=== PATIENT | female | born 1970 | race African-American/Black ===

== ENCOUNTER 2024-08-17 19:09 | Inpatient (IN) ==
[2024-08-17 19:36] LABS: Hematocrit (blood only) 44.4 % (37.0-47.0); Hemoglobin 12.4 g/dl (12.0-16.0); Mean Corpuscular Hemoglobin 24.5 pg (25.0-34.0); Mean Corpuscular Hgb Conc 27.9 g/dL (32.0-36.0); Mean Corpuscular Volume 87.7 fL (80.0-100.0); Mean Platelet Volume 10.9 fL (9.4-12.4); Nucleated RBC # (auto) 0.23 K/uL (0.00-0.12); Platelet Count 130 K/uL (130-400); RDW Coefficient of Variation 20.2 % (11.5-14.5); RDW Standard Deviation 62.9 fL (36.4-46.3); Red Blood Count 5.06 M/uL (4.20-5.40); White Blood Count 11.65 K/ul (4.8-10.8)
[2024-08-17] MEDS: SODIUM CHLORIDE 0.9% 1,000 ML IV ONE (19:38)
--- NOTE | 2024-08-17 19:48 | XRay Report ---
EXAM: Radiograph of the Chest 1 View INDICATION: Dysrhythmia. TECHNIQUE: Frontal view of the chest. Image obtained at 7:30 PM COMPARISON: None provided. FINDINGS: Lungs and pleural spaces: Mild pulmonary vascular congestion noted. Subsegmental right upper lobe collapse. No pulmonary edema. No pleural effusion or pneumothorax. Heart: Mild enlargement of the cardiac shadow. Mediastinum: Normal contour. Bones/joints: No fracture, erosion or dislocation. Soft tissues: No abnormality noted. No radiopaque foreign body noted. Tubes, lines and devices: The endotracheal tube terminates 2.4 cm above the karoline. Nasogastric tube terminates in the distal gastric body. Upper abdomen: No abnormality noted. IMPRESSION: 1. Lines and tubes as above. 2. Mild pulmonary vascular congestion and partial right upper lobe collapse. Consider mucous plug. ACT 112: N/A Electronically signed by Elida Goode 08-17-2024 7:47 PM
[2024-08-17 19:52] LABS: Anion Gap 14 (3-11); BUN Creatinine Ratio 6.1 (10-20); Blood Urea Nitrogen 19 mg/dl (6-23); Calcium 7.8 mg/dl (8.6-10.3); Carbon Dioxide 31 mmol/L (21-32); Chloride 102 mmol/L (98-107); Creatinine Clr Calc Pharmacy 20.7 ml/min; Glucose 126 mg/dl (70-99(Fasting)); Potassium 5.5 mmol/L (3.5-5.1); Sodium 147 mmol/L (136-145)
[2024-08-17] MEDS: EPINEPHrine/NSS 4 MG/254 ML BAG IV SCH (19:53)
[2024-08-17 20:06] LABS: Thyroid Stimulating Hormone 45.799 uIu/ml (0.300-4.500)
[2024-08-17 20:08] LABS: Aspartate Aminotransferase 2541 U/L (13-39)
[2024-08-17 20:10] LABS: Alanine Aminotransferase > 2500 U/L (7-52)
[2024-08-17 20:14] LABS: Albumin Globulin Ratio 1.5 (0.9-2); Albumin Level 3.1 gm/dl (3.4-5.0); Alkaline Phosphatase 122 U/L (34-104); Bilirubin,Total 0.3 mg/dl (0.2-1.0); Globulin 2.1 gm/dl (2.5-4.0); Total Protein 5.2 gm/dl (6.0-8.3)
[2024-08-17] MEDS: OPTIRAY 320 100ml IV ONE (20:24)
[2024-08-17 20:33] LABS: Amphetamines+Metham, Urine Neg (Neg); Barbiturates, Urine Neg (Neg); Benzodiazepine, Urine Neg (Neg); Cocaine, Urine Pos (Neg); Fentanyl, Urine Pos (Neg); MDMA (Ecstacy), Urine Neg (Neg); Marijuana, Urine Neg (Neg); Methadone, Urine Neg (Neg); Opiate, Urine Neg (Neg); Phencyclidine, Urine Neg (Neg)
[2024-08-17 20:35] LABS: Appearance Urine Turbid (Clear); Bacteria Urine Automated 4+ (None Seen); Bilirubin Urine Negative (Negative); Blood Urine Trace (Negative); Calcium Oxalate Crystals Urine Present (None Prsent); Color Urine Yellow; Glucose Urine UA Negative (Negative); Ketones Urine Trace (Negative); Leukocyte Esterase Urine Negative (Negative); Nitrite Urine Negative (Negative); Protein Urine 2+ (Negative); Specific Gravity Urine 1.025 (1.000-1.030); Urobilinogen Urine Negative (Negative); pH Urine 5.5 (4.5-7.5)
--- NOTE | 2024-08-17 20:37 | CT Scan Report ---
Exam(s): CT HEAD Without Contrast EXAM: CT Head Without Intravenous Contrast CLINICAL HISTORY: Reason for exam: cardiac arrest. TECHNIQUE: Axial computed tomography images of the head/brain without intravenous contrast. CTDI is 66.92 mGy and DLP is 1100.35 mGy-cm. Automated exposure control was utilized for the study. A dose lowering technique was utilized adhering to the principles of ALARA. COMPARISON: No relevant prior studies available. FINDINGS: Brain: Focal mild hyperdensity in the anterior right frontal lobe (series 2, image 16 represents beam hardening artifact. No evidence of acute intracranial hemorrhage. Diffuse cerebral edema with sulcal, basal cistern, sylvian fissure, and ventricular narrowing. Diffuse diminution in walters-white matter differentiation. Background of white matter hypodensity, which may represent chronic small vessel ischemic change. No midline shift or herniation. Ventricles: Narrowed. No hydrocephalus. Bones/joints: No acute fracture. Soft tissues: Unremarkable. Sinuses: Unremarkable as visualized. Mastoid air cells: No significant mastoid effusion. IMPRESSION: Diffuse cerebral edema with sulcal, basal cistern, sylvian fissure, and ventricular narrowing. Diffuse diminution in walters-white matter differentiation. Appearance is consistent with global hypoxic-ischemic injury. Communications: Call Doctor Other Electronically signed by: Alexey Islas M.D. 08/17/24 20:36 PM
[2024-08-17] MEDS: HYDROCORTISONE SOD SUCCINATE 100 MG/2 ML VIAL IV STA (20:45)
[2024-08-17 20:47] LABS: INR 1.3 (0.9-1.1); Partial Thromboplastin Ratio 2.6; Partial Thromboplastin Time 70 Seconds (21-31); Prothrombin Time 13.4 Seconds (9.0-12.0)
[2024-08-17 20:55] LABS: Anisocytosis Present; Basophils # (auto) 0.04 K/uL (0.00-0.20); Basophils % (auto) 0.3 %; Echinocytes 1+; Immature Granulocytes % (auto) 3.4 %; Lymphocytes # (auto) 2.87 K/uL (1.20-3.40); Lymphocytes % (auto) 24.6 %; Monocytes # (auto) 0.72 K/uL (0.11-0.59); Monocytes % (auto) 6.2 %; Neutrophils # (auto) 7.62 K/uL (1.40-6.50); Neutrophils % (auto) 65.5 %; Ovalocytes 1+
[2024-08-17 20:58] LABS: T4 Free Thyroxine < 0.32 ng/dl (0.61-1.60)
--- NOTE | 2024-08-17 21:04 | CT Scan Report ---
Exam(s): CT CHEST With Contrast IV Amt: 90 ml optiray 320 EXAM: CT Chest With Intravenous Contrast CLINICAL HISTORY: Reason for exam: cardiac arrest, consolidation. TECHNIQUE: Axial computed tomography images of the chest with intravenous contrast. CTDI is 30 mGy and DLP is 913 mGy-cm. Automated exposure control was utilized for the study. A dose lowering technique was utilized adhering to the principles of ALARA. CONTRAST: Patient received 90 ml optiray 320 of IV contrast COMPARISON: No relevant prior studies available. FINDINGS: Lungs: Subsegmental atelectasis in both lower lobes. Right upper lobe atelectasis/partial collapse with volume loss. No obstructing mass or mucous plug identified by CT. Background of paraseptal emphysema. Pleural space: Unremarkable. No pneumothorax or significant pleural effusion. Heart: Unremarkable. No cardiomegaly. No significant pericardial effusion. No significant coronary artery calcifications. Bones/joints: Acute nondisplaced buckle fracture anterior right rib 5 (series 3, image 28). No other fractures. Soft tissues: Unremarkable. Vasculature: Unremarkable. No aortic aneurysm or dissection. Normal caliber main pulmonary artery. Lymph nodes: Unremarkable. No enlarged lymph nodes. Tubes, lines and devices: Endotracheal tube 1.2 cm from the karoline on community resource officer image. Enteric tube extends to the stomach. IMPRESSION: 1. Endotracheal tube 1.2 cm from the karoline on community resource officer image. Enteric tube extends to the stomach. 2. Subsegmental atelectasis in both lower lobes. Right upper lobe atelectasis/partial collapse with volume loss. No obstructing mass or mucous plug identified by CT. 2. Acute nondisplaced buckle fracture anterior right rib 5. Correlate for recent chest compressions. Electronically signed by: Alexey Islas M.D. 08/17/24 21:03 PM
[2024-08-17] MEDS ORDERED: ONDANSETRON INJ 2 MG/ML 2 ML VIAL IV PRN (21:12)
[2024-08-17] MEDS: LEVOTHYROXINE SODIUM 200 MCG in SYRINGE 0 ML IV STA (21:13)
[2024-08-17] MEDS ORDERED: ALBUT/IPRATROP 3MG/0.5MG NEB 3 ML VIAL NEB PRN (21:14)
--- NOTE | 2024-08-17 21:19 | Critical Care Consultation ---
Date of Consultation August 17, 2024 Assessment & Plan (1) Shock: (2) Cardiac arrest: (3) Lactic acidosis: (4) Metabolic acidosis: (5) ARF (acute renal failure): (6) Anoxic brain injury: (7) Abnormal thyroid stimulating hormone (TSH) level: (8) Opiate use: (9) Elevated troponin: (10) Prolonged QT interval: (11) Rib fracture: Plan Reason Critically Ill: 54 YOF presents as Out of Hospital cardiac arrest following being found in back seat of car with unknown downtime- severe metabolic acidosis, lactic acidosis, multiorgan failure and concern for anoxic brain injury. Patient is requiring high doses of multiple vasopressor agents and remains with refractory shock, refractory acidosis and hypothermia. Neuro - Concern for anoxic brain injury, cerebral edema, unresponsive following cardiac arrest, opioid use CAM ICU: NESTOR - Patient presents post ROSC from cardiac arrest following being found in back seat of car without unknown down time. - Unfortunately head CT at this time is interpreted as diffuse diminution of walters-white matter differentiation, which is consistent with global hypoxic- ischemic injury- This being evident this early in patient course is a poor prognosticator for recovery to a meaningful state. - NPI 0 - nonreactive pupils, with conjunctival hemorrhages - Continue with supportive care at this time- maintaining spo2 >95%, Obtain normothermia of 36.0C- at minimal 34 deg C following ROSC, normalize PH as able, - She is with pinpoint pupils, not overbreathing the vent, no gag or cough with suctioning through the ETT, no withdraw to painful stimuli - holding on sedation at this time, she is not dyschronous with the vent or having any shivering at this time as well. - EEG in morning - as need time to warm patient - supportive care with electrolyte normalization as able - With her cerebral edema, there is no shift at this time, ventricles narrowed- likely already hyperosmolar secondary to bicarb pushes Cardiac - Shock, multiorgan failure, ROSC following cardiac arrest, prolonged qtc, elevated HsCTNI, - Patient in profound shock and multiorgan failure at this time following following unknown hypoxic down time - arrest at this time with no information and patient found unresponsive - may have been respiratory failure/hypoxia first and then to cardiac arrest, however unable to know for sure- if this was the case this increases her mortality significantly. - Patient is with refractory shock at this time, requiring 3 pressors at this time- to include- epinephrine, vasopressin, LEVOphed- if continued to fail could consider methylene blue - Received 4 liters of crystalloid at this time - hold further secondary to peripheral edema as well as scleral edema - Current organs effected- brain, liver, renals, heart - has been treated for possible decompensated hypothyroidism as her TSH is 49 with low T4 in setting of severe hypothermia and arrest- see Endo section - continue support with bicarb infusion Qtc prolongation likely secondary to severe acidosis - mag is 4.0- recheck and replete if able, otherwise continue with attempts to reverse acidosis - Arterial line placed to LEFT RADIAL- likely going to be lower than her central pressure secondary to the amount of vasopressors she is on- follow NIBP. Respiratory - Respiratory failure requiring intubation in setting of cardiac arrest - no opacities or effusions noted on imaging as well as negative for pneumothorax or hemothorax following CPR - Continue respiratory support for SPO2 95% or greater and adjust to assist to compensate for metabolic acidosis GI - Elevated LFTS - Likely secondary to shock from downtime - Now with flaca blood from OGT at 12:00- INR and Fibrinogen are pending- likely progressing to irreversible DIC - Calcium is being replaced RENAL/LYTES - ARF, multiple electrolyte abnormalities, lactic acidosis, anion gap metabolic acidosis - Continue with bicarb infusion and respiratory adjustments to combat metabolic acidosis - remains with severe acidosis and a this time would be unable to tolerate dialysis and is to hemodynamically unstable to transfer, as well as likely un- survivable global anoxic brain injury - Continue with supportive care as we currently are- optimized at this time - serum osmo 383, ETOH <10, gap 14 - UTI likely - Zosyn continue support ENDO - abnormal TSH - with her bradycardia, hypothermia and elevated TSH with low T4 in setting of refractory shock- hydrocortisone 100mg and T4 200mg IV given - Will continue with hydrocortisone 100mg IV q8 and if survives the night consider continuing maintenance of IV Synthroid- likely not main offending pathology here HEME - DIC - Labs have rapidly progressed to DIC like picture - Support with Vitamin K ID - Poss UTI - continue Zosyn LINES/IV ACCESS - CVL Left IJ, LT Radial art line, ETT, OGT, Motley Continue use of these lines DVT PROPHYLAXIS - SCDS, hold on chemoprophylaxis at this time secondary to elevated INR and Fibrinogen DISPO: ICU as requiring multipressor support in setting of multiorgan failure. Patient unfortunately has had an unknown time of down before being found by first responders as well as >45 minutes via ambulance to [facility]. She has refractory shock and refractory acidemia. High likelihood of in regards to the severity of the body systems effected. Case has been discussed with my Attending Physician secondary to her complexity and her unfortunate events, full medical support as we are able to provide. I have personally spent 90 minutes of critical care time in the direct management of this patient. This is a life/limb threatening event. This includes time spent evaluating patient, direct bedside care, chart review, placing orders, interpretation of diagnostic studies, discussion with consultants, as well as other required patient management activities. This time is exclusive of all separately billable procedures, and teaching time and separate from and in addition to any other critical care service time. Thank you for allowing us to participate in the care of this patient. Please refer to my attending physician's documentation for any further recommendations. History of Present Illness Reason for Consultation: ROSC following CPR Requesting Physician: Barbie Perez MD Attending Physician: Blu Torres MD History of Present Illness Information is limited in this HPI/Consultation as there is no family, patient is intubated and sedated. Information in this note is obtained from discussion with ER Nurse, ER Physician, and admitting Physician. 54 YOF who was brought in via EMS following emergent intubation as well as CPR in the field. Reportedly the patient was found unresponsive in the back seat of the car following traffic stop [place] [address] for speeding. Reportedly the car was t [facility] from [place]. It is unknown how long the patient was unresponsive in the back of the car, and was reported as approximately 45 min trip to get to [facility]. There was also reports of unknown substances found on the patient. Tox screen was positive for cocaine and Fentanyl. Reportedly Narcan was administered by first responders with not effect. Patient was noted to be severely hypothermic to 27.5 on arrival to [facility], as well as bradycardic, hypotensive and refractory to epinephrine and Levophed initially. Labs were obtained with BMP, CBC, Tox screen, TSH. ICU ws consulted following patient arrival by the EMD physician. Recommended acid base evaluation and lactate, imaging of head and chest without contrast which was already ordered. As labs returned, patient was noted with KARYNA, Positive tox screen as above, severe elevation of her LFTS, TSH 49 and pending T4. With her hypothermia, bradycardia and refractory shock, unknown history requested as well 100mg hydrocortisone and T4 200mcg IV. and continue re-warming. She remained with Poor IV access and escalating doses of vasopressors, emergent Central access was obtained under maximum sterile barriers to left IJ- see separate procedure note. VBG was then obtained as well as lactate, she was with sever acidosis with PH <7.0 and lactate of 17. 3 amps HCO3 administered and patient transferred to the ICU. Patient remains without any spontaneous movements, riding ventilator set rate and with early evidence of anoxic changes on her CT scan of her head. She will be admitted to the ICU to continue with hemodynamic support and re-warming, management of acid base disturbance. Patient unfortunately is likely hading into severe multiorgan failure from unknown down time and has a high likelihood of mortality. Family: There has been no family notified at this time that I am aware of. Have discussed with case management- with [employer] Section Iron[employer]'s License and Insurance card only identifying information found on patient. They have attempted to identify any emergency contacts, however at this time, we are unable to be able to contact persons. CODE: Presumed FULL Patient History Social History Smoking Status: Unknown if ever smoked Review of Systems Review of Systems: unable to obtain secondary to - intubation and sedation as well as high likelihood of anoxic brain injury Physical Exam Physical Exam: PHYSICAL EXAM: Neuro: No pupil reaction, NPI 0, no overbreathing vent, no gag, no cough, does not withdrawal to painful stimuli, scelra red/hemorrhagic with sceleral edema Chest: equal rise and fall of the chest, no accessory muscle use, no heaves or thrills, on ventilator Cardiac: Regular rate and rhythm, telemetry reviewed- bradycardia/junctional, skin cool and dry, cap refill >3 seconds, peripheral pulses +2 no JVD,, trace peripheral edema GI: NABS x 4 quadrants, soft, : motley to gravity draining minimal urine Skin- abrasion to chest, likely secondary to CPR/Blaise apparatus. Results & Data Results & Data Vital Signs (Past 12 Hours) Vital Signs Temp Pulse Resp BP Pulse Ox O2 Del Method 08/17/24 20:54 27.9 C L 40 L 16 85/42 L 100 08/17/24 20:00 82/38 L 08/17/24 19:48 40 L 16 100 08/17/24 19:45 40 L 16 86/37 L 100 08/17/24 19:43 27.9 C L 08/17/24 19:41 76/38 L 08/17/24 19:39 27.5 C L 08/17/24 19:30 44 L 16 70/34 L 100 08/17/24 19:24 49 L 16 103/52 L 100 08/17/24 19:14 100 Mechanical Vent 08/17/24 19:14 36 L 16 103/52 L 100 Mechanical Vent Laboratory Results Abnormal lab results 08/17/24 08/17/24 08/17/24 Range/Units 19:20 19:49 21:35 WBC 11.65 H (4.8-10.8) K/ul MCH 24.5 L (25.0-34.0) pg MCHC 27.9 L (32.0-36.0) g/dL RDW Std Deviation 62.9 H (36.4-46.3) fL RDW Coeff of Jared 20.2 H (11.5-14.5) % Neut # (Auto) 7.62 H (1.40-6.50) K/uL Harper # (Auto) 0.72 H (0.11-0.59) K/uL Immature Gran # (Auto) 0.40 H (0.01-0.20) K/uL Absolute Nucleated RBC 0.23 H (0.00-0.12) K/uL PT 13.4 H (9.0-12.0) Seconds INR 1.3 H (0.9-1.1) APTT 70 H (21-31) Seconds VBG pH < 7.00 L (7.36-7.41) VBG pCO2 54 H (38-50) mmHg Sodium 147 H (136-145) mmol/L Potassium 5.5 H (3.5-5.1) mmol/L Anion Gap 14 H (3-11) Creatinine 3.13 H (0.6-1.2) mg/dl BUN/Creatinine Ratio 6.1 L (10-20) Glucose 126 H (70-99(Fasting)) mg/dl Lactate > 17.0 H* (0.4-2.0) mmol/L Calcium 7.8 L (8.6-10.3) mg/dl Magnesium 4.0 H (1.7-2.4) mg/dl AST 2541 H (13-39) U/L ALT > 2500 H (7-52) U/L Alkaline Phosphatase 122 H (34-104) U/L Troponin I High Sens 207.3 H* (0-14) pg/ml Total Protein 5.2 L (6.0-8.3) gm/dl Albumin 3.1 L (3.4-5.0) gm/dl Globulin 2.1 L (2.5-4.0) gm/dl TSH 45.799 H (0.300-4.500) uIu/ml Free T4 < 0.32 L (0.61-1.60) ng/dl Urine Appearance Turbid A (Clear) Urine Protein 2+ H (Negative) Urine Ketones Trace H (Negative) Urine Blood Trace H (Negative) Urine WBC (Auto) 11-20 H (0-5) /hpf Urine RBC (Auto) 3-5 H (0-2) /hpf U Hyaline Cast (Auto) 11-20 H (0-2) /lpf U Epithel Cells (Auto) 11-20 H (0-2) /hpf Urine Bacteria (Auto) 4+ H (None Seen) Calcium Oxalate Crystal Present A (None Prsent) Urine Fentanyl Screen Pos H (Neg) Ur Cocaine Metabolite Pos H (Neg) Diagnostic Findings Chest X-Ray 08/17/24 19:26 EXAM: Radiograph of the Chest 1 View INDICATION: Dysrhythmia. TECHNIQUE: Frontal view of the chest. Image obtained at 7:30 PM COMPARISON: None provided. FINDINGS: Lungs and pleural spaces: Mild pulmonary vascular congestion noted. Subsegmental right upper lobe collapse. No pulmonary edema. No pleural effusion or pneumothorax. Heart: Mild enlargement of the cardiac shadow. Mediastinum: Normal contour. Bones/joints: No fracture, erosion or dislocation. Soft tissues: No abnormality noted. No radiopaque foreign body noted. Tubes, lines and devices: The endotracheal tube terminates 2.4 cm above the karoline. Nasogastric tube terminates in the distal gastric body. Upper abdomen: No abnormality noted. IMPRESSION: 1. Lines and tubes as above. 2. Mild pulmonary vascular congestion and partial right upper lobe collapse. Consider mucous plug. ACT 112: N/A Electronically signed by Elida Goode 08-17-2024 7:[address] 08/17/24 19:41 CR Exam(s): CT HEAD Without Contrast EXAM: CT Head Without Intravenous Contrast CLINICAL HISTORY: Reason for exam: cardiac arrest. TECHNIQUE: Axial computed tomography images of the head/brain without intravenous contrast. CTDI is 66.92 mGy and DLP is 1100.35 mGy-cm. Automated exposure control was utilized for the study. A dose lowering technique was utilized adhering to the principles of ALARA. COMPARISON: No relevant prior studies available. FINDINGS: Brain: Focal mild hyperdensity in the anterior right frontal lobe (series 2, image 16 represents beam hardening artifact. No evidence of acute intracranial hemorrhage. Diffuse cerebral edema with sulcal, basal cistern, sylvian fissure, and ventricular narrowing. Diffuse diminution in walters-white matter differentiation. Background of white matter hypodensity, which may represent chronic small vessel ischemic change. No midline shift or herniation. Ventricles: Narrowed. No hydrocephalus. Bones/joints: No acute fracture. Soft tissues: Unremarkable. Sinuses: Unremarkable as visualized. Mastoid air cells: No significant mastoid effusion. IMPRESSION: Diffuse cerebral edema with sulcal, basal cistern, sylvian fissure, and ventricular narrowing. Diffuse diminution in walters-white matter differentiation. Appearance is consistent with global hypoxic-ischemic injury. Communications: Call Doctor Other Electronically signed by: Alexey Islas M.D. 08/17/24 20:[address] 08/17/24 20:07 Exam(s): CT CHEST With Contrast IV Amt: 90 ml optiray 320 EXAM: CT Chest With Intravenous Contrast CLINICAL HISTORY: Reason for exam: cardiac arrest, consolidation. TECHNIQUE: Axial computed tomography images of the chest with intravenous contrast. CTDI is 30 mGy and DLP is 913 mGy-cm. Automated exposure control was utilized for the study. A dose lowering technique was utilized adhering to the principles of ALARA. CONTRAST: Patient received 90 ml optiray 320 of IV contrast COMPARISON: No relevant prior studies available. FINDINGS: Lungs: Subsegmental atelectasis in both lower lobes. Right upper lobe atelectasis/partial collapse with volume loss. No obstructing mass or mucous plug identified by CT. Background of paraseptal emphysema. Pleural space: Unremarkable. No pneumothorax or significant pleural effusion. Heart: Unremarkable. No cardiomegaly. No significant pericardial effusion. No significant coronary artery calcifications. Bones/joints: Acute nondisplaced buckle fracture anterior right rib 5 (series 3, image 28). No other fractures. Soft tissues: Unremarkable. Vasculature: Unremarkable. No aortic aneurysm or dissection. Normal caliber main pulmonary artery. Lymph nodes: Unremarkable. No enlarged lymph nodes. Tubes, lines and devices: Endotracheal tube 1.2 cm from the karoline on scalping machine operator image. Enteric tube extends to the stomach. IMPRESSION: 1. Endotracheal tube 1.2 cm from the karoline on scalping machine operator image. Enteric tube extends to the stomach. 2. Subsegmental atelectasis in both lower lobes. Right upper lobe atelectasis/partial collapse with volume loss. No obstructing mass or mucous plug identified by CT. 2. Acute nondisplaced buckle fracture anterior right rib 5. Correlate for recent chest compressions. Electronically signed by: Alexey Islas M.D. 08/17/24 21:03 PM Chest X-Ray 08/17/24 21:00 Exam(s): XR CXR 1 VIEW EXAM: XR Chest, 1 View CLINICAL HISTORY: Reason for exam: central line placement. TECHNIQUE: Frontal view of the chest. COMPARISON: 08/09/24 at 1930 hrs. FINDINGS/IMPRESSION: 1. Interval placement of left IJ CVC with tip in the distal SVC. No pneumothorax. 2. Endotracheal tube 2.1 cm from the karoline. Enteric tube remains in place. 3. Right lung opacities. Compared to prior, mildly improved right upper lobe aeration, with mildly worsened opacities in the right lower lung. 3. Mild left basilar opacities, appearing mildly increased. 4. Intraosseous line in the right proximal humerus. 5. No significant pleural effusion. Stable heart size. Stable skeleton. Electronically signed by: Alexey Islas M.D. 08/17/24 21:50 PM KUB X-Ray 08/17/24 21:10 Exam(s): XR KUB EXAM: XR Abdomen, 1 View CLINICAL HISTORY: Reason for exam: check position of NG tube. TECHNIQUE: Frontal supine view of the abdomen/pelvis. COMPARISON: No relevant prior studies available. FINDINGS/IMPRESSION: 1. Enteric tube with tip and side port in the stomach. Electronically signed by: Alexey Islas M.D. 08/17/24 21:51 PM Medications Administered Epinephrine HCl () 4 mg in 254 mls @ 6.477 mls/hr IV .Q24H REMEDIOS; Protocol Stop: 09/16/24 19:29 Last Titration: 08/17/24 19:58 Dose: 0.2 mcg/kg/min, 64.8 mls/hr Documented By: BRODIE Co-signed By: LEONARDO Admin: 08/17/24 19:53 Dose: 0.15 mcg/kg/min, 48.6 mls/hr Documented By: NRLuad Co-signed By: LEONARDO Discontinued Medications Hydrocortisone Sodium Succinate (Hydrocortisone Sod Succinate 100 Mg/2 Ml Vial) 100 mg IV NOW STA Stop: 08/17/24 20:38 Last Admin: 08/17/24 20:45 Dose: 100 mg Documented By: BRODIE Sodium Chloride (Nss) 1,000 mls @ 999 mls/hr IV .Q1H1M ONE Stop: 08/17/24 20:25 Last Infusion: 08/17/24 20:53 Dose: Infused Documented By: Admin: 08/17/24 19:38 Dose: 999 mls/hr Documented By: BRODIE Levothyroxine Sodium 200 mcg/ (Syringe) 10 mls @ 2 mls/min IV NOW STA; Protocol Stop: 08/17/24 20:42 Last Admin: 08/17/24 21:13 Dose: 2 mls/min Documented By: LEONARDO Ioversol (Optiray 320 100ml) 90 ml IV ONCE ONE Stop: 08/17/24 20:25 Last Admin: 08/17/24 20:24 Dose: 90 ml Documented By: RADHA Sodium Bicarbonate (Sodium Bicarb 8.4% Inj 50 Meq/50 Ml Syr) 50 meq IV Q5M REMEDIOS Stop: 08/17/24 22:04 Last Admin: 08/17/24 22:06 Dose: 50 meq Documented By: Admin: 08/17/24 22:00 Dose: 50 meq Documented By: Admin: 08/17/24 21:55 Dose: 50 meq Documented By: IDMadi ECG Additional Comments: Marked sinus bradycardia Septal infarct(cited on or [id number]) ST &T wave abnormality, consider anterior ischemia Prolonged QT Abnormal ECG When compared with ECG [id number] 19:56,(unconfirmed) Sinus rhythmhas replacedJunctional rhythm T wave inversion no longer evident inInferior leads T wave inversion no longer evident inLateral leads Coding Level of Care Code 62421 CRITICAL CARE 1ST 30-74M Additional Critical Care Time Additional 30min Critical Care Time: Yes - 38083 x 2 (60 addl min) Total Critical Care Time: 90 Diagnoses Shock R57.9 Cardiac arrest I46.9 Lactic acidosis E87.20 Metabolic acidosis E87.20 ARF (acute renal failure) N17.9 Anoxic brain injury G93.1 Abnormal thyroid stimulating hormone (TSH) level R79.89 Opiate use F11.90 Elevated troponin R79.89 Prolonged QT interval R94.31 Rib fracture S22.39XA Additional Codes Critical Care Time - Additional 30min Critical Care Time: Yes - 98618 x 2 (60 addl min) ([id number])
--- NOTE | 2024-08-17 21:19 | Procedure Note ---
Procedure Note Date of Service August 17, 2024 INTERNAL JUGULAR CENTRAL LINE PROCEDURE NOTE: Procedure: Internal Jugular Central Line Placement Proceduralist: Diego MOROCHO ([facility]) Attending: Dr. Cavazos Indication: Central Drug Administration, Poor Venous Access, Multiple Lab Draws Necessary, etc. Anesthesia: [x]Lidocaine 1% Emergent Consent was implied as patient is intubated sedated, unresponsive post cardiac arrest with ROSC requiring increasig doses of vasopressor/inotropic medications. There is no family immediately available A time-out was completed verifying correct patient, procedure, site, positioning, Patients LEFT Neck was cleansed and draped in the typical sterile fashion using Chloraprep. The Internal Jugular Vein and Carotid Artery were identified using ultrasound. The superficial tissue was anesthetized using 5 mL of 1% lidocaine without epinephrine under direct visualization with the ultrasound. After adequate anesthetization was achieved, the Internal Jugular vein was cannulated under direct ultrasound guidance using an introducer needle on a syringe. Good venous blood return was maintained prior to removal of syringe from introducer needle. Using Seldinger Technique, a guide wire was advanced through the introducer needle without resistance. The introducer needle was removed and ultrasound images were obtained of the guide wire within the Internal Jugular Vein. A small incision was made in penetrating fashion at the guide wire insertion site utilizing an 11 blade scalpel. The dilator was advanced to the vessel without resistance. The dilator was exchanged for the triple lumen catheter which was advanced into the vessel without resistance. The guide wire was removed intact from the catheter without issue. Claves were placed on each catheter tip with confirmation of good blood flow from each lumen. Each port was easily flushed with sterile saline. The catheter was placed at 20 cm and sutured in place. BioPatch was applied to the catheter and a sterile Tegaderm dressing was applied over the catheter with careful attention to sterility. Patient tolerated procedure well. No immediate complications were met. Post procedure x-ray was completed, placement was appropriate and no pneumothorax was noted. Images obtained are NOT saved for permanent record as this was emergent Artery AND Vein visualized: YES Compressible Vein: YES Guidewire or Short Catheter seen in vein prior to dilation: YES Line confirmed in Vein with CXR: YES [facility] Procedure Codes (Charges) Tubes, Drains, and Vasc Access Procedure 1: Tubes, Drains, and Vasc Access: [id number] Insertion Of Non-tunneled Catheter Age 3 Yrs> Coding CPT Codes Tubes, Drains, and Vasc Access - Tubes, Drains, and Vasc Access: [id number] Insertion Of Non-tunneled Catheter Age 3 Yrs> ([id number]) Additional Codes Date of Service ([facility].SURGERY)
--- NOTE | 2024-08-17 21:19 | Procedure Note ---
Procedure Note Date of Service August 17, 2024 ARTERIAL LINE PROCEDURE NOTE: Procedure: Arterial Line Placement Proceduralist: Diego [facility]OCHO ([facility] Attending: Dr. Cavazos Indication: Monitoring on Pressors Anesthesia: [x]None Emergent consent has been implied as patient was brought post arrest with ROSC, and requiring escalating doses of multiple vasopressors and will require frequent lab draws and real time monitoring. A time-out was completed verifying correct patient, procedure, site, positioning. Allens test was performed to ensure adequate perfusion. Patients LEFT wrist was prepped and draped in the usual sterile fashion. Ultrasound guidance was used to aid needle placement. A 20g Arrow arterial line was introduced into the LEFT RADIAL artery x1 attempt, brisk flash of blood was noted, the wire was advanced without resistance and the catheter was threaded without resistance. The needle was removed with appropriate blood return and pressure tubing was attached noting a good arterial waveform. The patient tolerated the procedure well with no immediate complications noted. The line was secured in place with suture and sterile dressing was applied. Blood Loss: Minimal Complications: None immediate Artery Identified: YES Line confirmed in Artery with ultrasound: YES Complications: NONE immediate [facility] Procedure Codes (Charges) Tubes, Drains, and Vasc Access Procedure 1: Tubes, Drains, and Vasc Access: [id number] Arterial Cath/Cannulation Sampling/Monitoring/Transfusion Coding CPT Codes Tubes, Drains, and Vasc Access - Tubes, Drains, and Vasc Access: [id number] Arterial Cath/Cannulation Sampling/Monitoring/Transfusion ([id number]) Additional Codes Date of Service ([facility].SURGERY)
--- NOTE | 2024-08-17 21:27 | History & Physical Report ---
Date of Service August 17, 2024 Assessment & Plan (1) Sepsis with acute liver failure and septic shock: (2) Overdose of fentanyl: (3) Cardiac arrest: (4) Cocaine abuse: (5) Anoxic brain injury: (6) ARF (acute renal failure): (7) Admitted to intensive care unit: Plan The patient is a 54-year-old female with unknown past medical history, who presents to the emergency department in an unresponsive state status post intubation in the field.The patient was brought to the emergency department by police officers, after being found unresponsive in the backseat of a vehicle during a routine traffic stop. The ambulette driver the vehicle stated that the patient had been asleep since they had left [place] earlier in the day. When police officers were unable to wake the patient up, and they noted she was pulseless, they began CPR, and called EMS. The patient reportedly was a sys tolic initially, and after IV epinephrine has shockable rhythm and V-fib. Cardiac resuscitation was initiated approximately 45 minutes prior to arrival in the emergency department. She had been receiving push dose epinephrine due to low blood pressure and faint pulses in the interim. When patient arrived to the emergency department, she was intubated, and history was primarily obtained as noted. There were no family or friends available with the patient in the emergency department. At the time of the mind and a hospitalist service assessment, the patient was intubated, and unresponsive. In the emergency department, patient received treatment including the following: Epinephrine infusion, normal saline 3 L boluses, hydrocortisone 100 mg IV, levothyroxine 200 mg IV. Significant abnormal laboratories: AST 2541, ALT greater than 2500, TSH 45.797, magnesium 4.0, potassium 5.5, creatinine 3.13. CT scan of head showed diffuse cerebral edema with sulcal, basal cistern, sylvian fissure, and ventricular narrowing. Diffuse diminution in walters-white matter differentiation. Appearance consistent with global hypoxic-ischemic injury. Patient was referred to [facility] service for admission to the ICU for ongoing care. #Sepsis/acute liver failure/acute kidney failure/anoxic brain injury/septic shock- Patient admitted to intensive care unit on ventilator, with consult to net solutions architect team for further management Continue epinephrine drip IV fluid resuscitation further management per ICU CT with extensive changes suggestive of significant anoxic brain injury Will be ordering MRI brain and EEG per protocol in the a.m. with neurology consult Acute liver failure/DIC/coagulopathy AST 2541, ALT greater than 2500. Follow laboratory serially Initial INR 1.3, with follow-up greater than 10.0 pH 6.95, pCO2 49, pO2 79, O2 sat 94% Lactate greater than 17.0 Acute kidney failure- Initial creatinine 3.13, follow-up 2.89 NSTEMI s/p cardiac arrest- Initial troponin 207.3 with serial follow-ups Order complete echocardiogram Positive urine drug screen- Cocaine positive with confirmation test pending Fentanyl positive with confirmation test pending Urinary tract infection- Zosyn 4.5 g IV every 8 hours Pulmonary- CT chest with multiple lung opacities- Zosyn 4.5 g IV every 8 hours to cover you urine and pulmonary MRSA swab, coverage of positive History of Present Illness Chief Complaint: The patient was brought to the emergency department by police officers, after being found unresponsive in the backseat of a vehicle during a routine traffic stop. The ambulette driver the vehicle stated that the patient had been asleep since they had left [place] earlier in the day. When police officers were unable to wake the patient up, and they noted she was pulseless, they began CPR, and called EMS. The patient reportedly was a systolic initially, and after IV epinephrine has shockable rhythm and V-fib. Cardiac resuscitation was initiated approximately 45 minutes prior to arrival in the emergency department. She had been receiving push dose epinephrine due to low blood pressure and faint pulses in the interim. When patient arrived to the emergency department, she was intubated, and history was primarily obtained as noted. There were no family or friends available with the patient in the emergency department. At the time of the mind and a hospitalist service assessment, the patient was intubated, and unresponsive. Primary Care Provider: NO PCP The patient is a 54-year-old female with unknown past medical history, who presents to the emergency department in an unresponsive state status post intubation in the field.The patient was brought to the emergency department by police officers, after being found unresponsive in the backseat of a vehicle during a routine traffic stop. The ambulette driver the vehicle stated that the patient had been asleep since they had left [place] earlier in the day. When police officers were unable to wake the patient up, and they noted she was pulseless, they began CPR, and called EMS. The patient reportedly was a systolic initially, and after IV epinephrine has shockable rhythm and V-fib. Cardiac resuscitation was initiated approximately 45 minutes prior to arrival in the emergency department. She had been receiving push dose epinephrine due to low blood pressure and faint pulses in the interim. When patient arrived to the emergency department, she was intubated, and history was primarily obtained as noted. There were no family or friends available with the patient in the emergency department. At the time of the mind and a hospitalist service asses sment, the patient was intubated, and unresponsive. In the emergency department, patient received treatment including the following: Epinephrine infusion, normal saline 3 L boluses, hydrocortisone 100 mg IV, levothyroxine 200 mg IV. Significant abnormal laboratories: AST 2541, ALT greater than 2500, TSH 45.797, magnesium 4.0, potassium 5.5, creatinine 3.13. CT scan of head showed diffuse cerebral edema with sulcal, basal cistern, sylvian fissure, and ventricular narrowing. Diffuse diminution in walters-white matter differentiation. Appearance consistent with global hypoxic-ischemic injury. Patient was referred to [facility] for admission to the ICU for ongoing care. Past Med/Surg History Problem List (Updated 08/18/24 @ 03:15 by Blu Torres MD) Sepsis with acute liver failure and septic shock Admitted to intensive care unit Overdose of fentanyl (Acute) Cocaine abuse (Acute) Rib fracture Prolonged QT interval Elevated troponin Opiate use Abnormal thyroid stimulating hormone (TSH) level Anoxic brain injury (Acute) ARF (acute renal failure) Metabolic acidosis Lactic acidosis Cardiac arrest (Acute) Shock Social History Smoking Status: Unknown if ever smoked Review of Systems Review of Systems: Patient unable to contribute to HPI or review of systems as noted. Information primarily gathered through reports of EMS and police. Physical Exam Physical Exam: The patient is intubated, unresponsive, on ventilator. HEENT--PERRL, EOMI, mucous membranes and oropharynx dry. Neck--supple. No JVD. No bruits. Thyroid normal, trachea midline, no adenopathy. Heart--normal S1 and S2. No murmurs, rubs or gallops. Lungs--clear bilaterally Abdomen--normal bowel sounds and soft. Nontender. Nondistended. Mildly tympanitic Extremities--no cyanosis or clubbing. No edema. Dermatologic--normal skin turgor, normal color, no abnormal lymph nodes, no rash. Neurologic-- limited exam Rheumatologic-limited exam. Psychiatric--unresponsive Results & Data Results & Data Vital Signs (Past 12 Hours) Vital Signs Temp Pulse Resp BP Pulse Ox O2 Del Method 08/17/24 20:54 27.9 C L 40 L 16 85/42 L 100 08/17/24 20:00 82/38 L 08/17/24 19:48 40 L 16 100 08/17/24 19:45 40 L 16 86/37 L 100 08/17/24 19:43 27.9 C L 08/17/24 19:41 76/38 L 08/17/24 19:39 27.5 C L 08/17/24 19:30 44 L 16 70/34 L 100 08/17/24 19:24 49 L 16 103/52 L 100 08/17/24 19:14 100 Mechanical Vent 08/17/24 19:14 36 L 16 103/52 L 100 Mechanical Vent Laboratory Results Laboratory Results WBC 11.65 K/ul (4.8-10.8) H 08/17/24 19:20 RBC 5.06 M/uL (4.20-5.40) 08/17/24 19:20 Hgb 12.4 g/dl (12.0-16.0) 08/17/24 19:20 POC Hgb 8.8 g/dl (12.0-16.0) L 08/18/24 00:25 Hct 44.4 % (37.0-47.0) 08/17/24 19:20 POC Hct 26 % (37-47) L 08/18/24 00:25 MCV 87.7 fL (80.0-100.0) 08/17/24 19:20 MCH 24.5 pg (25.0-34.0) L 08/17/24 19:20 MCHC 27.9 g/dL (32.0-36.0) L 08/17/24 19:20 RDW Std Deviation 62.9 fL (36.4-46.3) H 08/17/24 19:20 RDW Coeff of Jared 20.2 % (11.5-14.5) H 08/17/24 19:20 Plt Count 130 K/uL (130-400) 08/17/24 19:20 MPV 10.9 fL (9.4-12.4) 08/17/24 19:20 Immature Gran % (Auto) 3.4 % 08/17/24 19:20 Neut % (Auto) 65.5 % 08/17/24 19:20 Lymph % (Auto) 24.6 % 08/17/24 19:20 [place] % (Auto) 6.2 % 08/17/24 19:20 Eos % (Auto) 0.0 % 08/17/24 19:20 Baso % (Auto) 0.3 % 08/17/24 19:20 Neut # (Auto) 7.62 K/uL (1.40-6.50) H 08/17/24 19:20 Lymph # (Auto) 2.87 K/uL (1.20-3.40) 08/17/24 19:20 [place] # (Auto) 0.72 K/uL (0.11-0.59) H 08/17/24 19:20 Eos # (Auto) 0.00 K/uL (0.00-0.50) 08/17/24 19:20 Baso # (Auto) 0.04 K/uL (0.00-0.20) 08/17/24 19:20 Immature Gran # (Auto) 0.40 K/uL (0.01-0.20) H 08/17/24 19:20 Absolute Nucleated RBC 0.23 K/uL (0.00-0.12) H 08/17/24 19:20 Nucleated RBC % (auto) 2.0 % 08/17/24 19:20 Anisocytosis Present 08/17/24 19:20 Ovalocytes 1+ 08/17/24 19:20 Echinocytes 1+ 08/17/24 19:20 PT > 90.0 Seconds (9.0-12.0) H 08/17/24 23:11 INR > 10.0 (0.9-1.1) H* 08/17/24 23:11 APTT 70 Seconds (21-31) H 08/17/24 19:20 PTT Ratio 2.6 08/17/24 19:20 Fibrinogen > 860 mg/dl (184-400) H 08/17/24 23:11 Specimen Type Arterial 08/18/24 00:25 Sample Site Art Line 08/18/24 00:25 POC pH 7.02 (7.35-7.45) L* 08/18/24 00:25 POC pCO2 49 mmHg (35-46) H 08/18/24 00:25 POC pO2 78 mmHg (80-95) L 08/18/24 00: POC HCO3 13 daniel/L (19-24) L 08/18/24 00:25 POC Total CO2 14 mmol/L (24-31) L 08/18/24 00: POC Base Excess -18.0 daniel/L (-9-1.8) L 08/18/24 00:25 O2 Sat Pulse Oximetry 93 08/18/24 00: ABG pH (Temp Correct) 7.120 (7.35-7.45) L* 08/18/24 00: ABG pCO2 (Temp Corrct 35 mmHg (35-46) 08/18/24 00: POC ABG pO2 at Pt Temp 46 08/18/24 00: POC ABG O2 Sat 87.0 % (90-95) L 08/18/24 00: Bijan Test Pass 08/18/24 00: VBG pH < 7.00 (7.36-7.41) L 08/17/24 21:35 VBG pCO2 54 mmHg (38-50) H 08/17/24 21:35 VBG pO2 74 mmHg 08/17/24 21:35 VBG HCO3 TNP 08/17/24 21:35 VBG O2 Saturation 89.6 % 08/17/24 21:35 VBG Base Excess TNP 08/17/24 21:35 O2 Delivery Device Ventilator 08/18/24 00:25 Vent Mode AC 08/18/24 00: POC FiO2 90 % 08/18/24 00: End Tidal CO2 18 08/18/24 00:25 POC Sodium 146 mmol/L (135-144) H 08/18/24 00:25 Sodium 162 mmol/L (136-145) H* D 08/17/24 23:10 POC Potassium 4.6 mmol/L (3.3-5.0) 08/18/24 00:25 Potassium 4.7 mmol/L (3.5-5.1) 08/17/24 23:10 Chloride 104 mmol/L (98-107) 08/17/24 23:10 Carbon Dioxide > 45 mmol/L (21-32) H* 08/17/24 23:10 Anion Gap TNP 08/17/24 23:10 BUN 20 mg/dl (6-23) 08/17/24 23:10 Creatinine 2.89 mg/dl (0.6-1.2) H 08/17/24 23:10 Est Cr Clr Drug Dosing 21.6 ml/min 08/17/24 23:10 eGFR 18.50 08/17/24 23:10 BUN/Creatinine Ratio 6.9 (10-20) L 08/17/24 23:10 Glucose 115 mg/dl (70-99(Fasting)) H 08/17/24 23:10 Osmolality 363 mOsm/kg (280-300) H* 08/17/24 19:20 Lactate > 17.0 mmol/L (0.4-2.0) H* 08/18/24 00:53 Calcium 5.5 mg/dl (8.6-10.3) L* D 08/17/24 23:10 Magnesium 3.1 mg/dl (1.7-2.4) H 08/17/24 23:10 Total Bilirubin 0.3 mg/dl (0.2-1.0) 08/17/24 19:20 AST 2541 U/L (13-39) H 08/17/24 19:20 ALT > 2500 U/L (7-52) H 08/17/24 19:20 Alkaline Phosphatase 122 U/L (34-104) H 08/17/24 19:20 Troponin I High Sens 207.3 pg/ml (0-14) H* 08/17/24 19:20 Total Protein 5.2 gm/dl (6.0-8.3) L 08/17/24 19:20 Albumin 3.1 gm/dl (3.4-5.0) L 08/17/24 19:20 Globulin 2.1 gm/dl (2.5-4.0) L 08/17/24 19:20 Albumin/Globulin Ratio 1.5 (0.9-2) 08/17/24 19:20 TSH 45.799 uIu/ml (0.300-4.500) H 08/17/24 19:20 Free T4 < 0.32 ng/dl (0.61-1.60) L 08/17/24 19:20 Urine Color Yellow 08/17/24 19:49 Urine Appearance Turbid (Clear) A 08/17/24 19:49 Urine pH 5.5 (4.5-7.5) 08/17/24 19:49 Ur Specific [place] 1.025 (1.000-1.030) 08/17/24 19:49 Urine Protein 2+ (Negative) H 08/17/24 19:49 Urine Glucose (UA) Negative (Negative) 08/17/24 19:49 Urine Ketones Trace (Negative) H 08/17/24 19:49 Urine Blood Trace (Negative) H 08/17/24 19:49 Urine Nitrite Negative (Negative) 08/17/24 19:49 Urine Bilirubin Negative (Negative) 08/17/24 19:49 Urine Urobilinogen Negative (Negative) 08/17/24 19:49 Ur Leukocyte Esterase Negative (Negative) 08/17/24 19:49 Urine WBC (Auto) 11-20 /hpf (0-5) H 08/17/24 19:49 Urine RBC (Auto) 3-5 /hpf (0-2) H 08/17/24 19:49 U Hyaline Cast (Auto) 11-20 /lpf (0-2) H 08/17/24 19:49 U Epithel Cells (Auto) 11-20 /hpf (0-2) H 08/17/24 19:49 Urine Bacteria (Auto) 4+ (None Seen) H 08/17/24 19:49 Calcium Oxalate Crystal Present (None Prsent) A 08/17/24 19:49 Urine Osmolality 685 mOsm/kg (500-800) 08/17/24 19:20 Salicylates < 3.0 mg/dl (3.0-30) L 08/17/24 23:10 Urine Opiates Screen Neg (Neg) 08/17/24 19:49 Ur Methadone, Qual Neg (Neg) 08/17/24 19:49 Urine Fentanyl Screen Pos (Neg) H 08/17/24 19:49 Acetaminophen < 3 ug/ml (10-30) L 08/17/24 23:10 Urine Barbiturates Neg (Neg) 08/17/24 19:49 Ur Phencyclidine (PCP) Neg (Neg) 08/17/24 19:49 U Amphetamin/Meth Scrn Neg (Neg) 08/17/24 19:49 MDMA (Ecstasy) Screen Neg (Neg) 08/17/24 19:49 U Benzodiazepines Scrn Neg (Neg) 08/17/24 19:49 Ur Cocaine Metabolite Pos (Neg) H 08/17/24 19:49 U Marijuana (THC) Screen Neg (Neg) 08/17/24 19:49 Ethyl Alcohol mg/dL < 10.0 mg/dl (<10.0) 08/17/24 23:[address] 08/17/24 19:41 CR Exam(s): CT HEAD Without Contrast EXAM: CT Head Without Intravenous Contrast CLINICAL HISTORY: Reason for exam: cardiac arrest. TECHNIQUE: Axial computed tomography images of the head/brain without intravenous contrast. CTDI is 66.92 mGy and DLP is 1100.35 mGy-cm. Automated exposure control was utilized for the study. A dose lowering technique was utilized adhering to the principles of ALARA. COMPARISON: No relevant prior studies available. FINDINGS: Brain: Focal mild hyperdensity in the anterior right frontal lobe (series 2, image 16 represents beam hardening artifact. No evidence of acute intracranial hemorrhage. Diffuse cerebral edema with sulcal, basal cistern, sylvian fissure, and ventricular narrowing. Diffuse diminution in walters-white matter differentiation. Background of white matter hypodensity, which may represent chronic small vessel ischemic change. No midline shift or herniation. Ventricles: Narrowed. No hydrocephalus. Bones/joints: No acute fracture. Soft tissues: Unremarkable. Sinuses: Unremarkable as visualized. Mastoid air cells: No significant mastoid effusion. IMPRESSION: Diffuse cerebral edema with sulcal, basal cistern, sylvian fissure, and ventricular narrowing. Diffuse diminution in walters-white matter differentiation. Appearance is consistent with global hypoxic-ischemic injury. Communications: Call Doctor Other Electronically signed by: Alexey Islas M.D. 08/17/24 20:[address] 08/17/24 20:07 Exam(s): CT CHEST With Contrast IV Amt: 90 ml optiray 320 EXAM: CT Chest With Intravenous Contrast CLINICAL HISTORY: Reason for exam: cardiac arrest, consolidation. TECHNIQUE: Axial computed tomography images of the chest with intravenous contrast. CTDI is 30 mGy and DLP is 913 mGy-cm. Automated exposure control was utilized for the study. A dose lowering technique was utilized adhering to the principles of ALARA. CONTRAST: Patient received 90 ml optiray 320 of IV contrast COMPARISON: No relevant prior studies available. FINDINGS: Lungs: Subsegmental atelectasis in both lower lobes. Right upper lobe atelectasis/partial collapse with volume loss. No obstructing mass or mucous plug identified by CT. Background of paraseptal emphysema. Pleural space: Unremarkable. No pneumothorax or significant pleural effusion. Heart: Unremarkable. No cardiomegaly. No significant pericardial effusion. No significant coronary artery calcifications. Bones/joints: Acute nondisplaced buckle fracture anterior right rib 5 (series 3, image 28). No other fractures. Soft tissues: Unremarkable. Vasculature: Unremarkable. No aortic aneurysm or dissection. Normal caliber main pulmonary artery. Lymph nodes: Unremarkable. No enlarged lymph nodes. Tubes, lines and devices: Endotracheal tube 1.2 cm from the karoline on auditor image. Enteric tube extends to the stomach. IMPRESSION: 1. Endotracheal tube 1.2 cm from the karoline on auditor image. Enteric tube extends to the stomach. 2. Subsegmental atelectasis in both lower lobes. Right upper lobe atelectasis/partial collapse with volume loss. No obstructing mass or mucous plug identified by CT. 2. Acute nondisplaced buckle fracture anterior right rib 5. Correlate for recent chest compressions. Electronically signed by: Alexey Islas M.D. 08/17/24 21:03 PM Chest X-Ray 08/17/24 21:00 Exam(s): XR CXR 1 VIEW EXAM: XR Chest, 1 View CLINICAL HISTORY: Reason for exam: central line placement. TECHNIQUE: Frontal view of the chest. COMPARISON: 08/09/24 at 1930 hrs. FINDINGS/IMPRESSION: 1. Interval placement of left IJ CVC with tip in the distal SVC. No pneumothorax. 2. Endotracheal tube 2.1 cm from the karoline. Enteric tube remains in place. 3. Right lung opacities. Compared to prior, mildly improved right upper lobe aeration, with mildly worsened opacities in the right lower lung. 3. Mild left basilar opacities, appearing mildly increased. 4. Intraosseous line in the right proximal humerus. 5. No significant pleural effusion. Stable heart size. Stable skeleton. Electronically signed by: Alexey Islas M.D. 08/17/24 21:50 PM KUB X-Ray 08/17/24 21:10 Exam(s): XR KUB EXAM: XR Abdomen, 1 View CLINICAL HISTORY: Reason for exam: check position of NG tube. TECHNIQUE: Frontal supine view of the abdomen/pelvis. COMPARISON: No relevant prior studies available. FINDINGS/IMPRESSION: 1. Enteric tube with tip and side port in the stomach. Electronically signed by: Alexey Islas M.D. 08/17/24 21:51 PM Code Status & VTE Plan Code Status Full code VTE Prophylaxis Plan VTE Prophylaxis will be ordered: Yes PG Care Time/CCT Total # of Minutes Spent Total Time Spent with Patient: Total time spent is greater than 50% in coordination of care (as documented) at patient's floor/unit and/or counseling patient: Coding Level of Care Code 83525 INT INP/OBS CARE 3/75MIN Diagnoses Sepsis with acute liver failure and septic shock A41.9; R65.21; K72.01 Overdose of fentanyl T40.411A Cardiac arrest I46.9 Cocaine abuse F14.10 Anoxic brain injury G93.1 ARF (acute renal failure) N17.9 Admitted to intensive care unit Z78.9
[2024-08-17 21:28] LABS: Troponin I High Sensitivity 207.3 pg/ml (0-14)
[2024-08-17 21:44] LABS: Oxygen Saturation VBG 89.6 %; PCO2 VBG 54 mmHg (38-50); PO2 VBG 74 mmHg; pH VBG < 7.00 (7.36-7.41)
--- NOTE | 2024-08-17 21:52 | XRay Report ---
Exam(s): XR KUB EXAM: XR Abdomen, 1 View CLINICAL HISTORY: Reason for exam: check position of NG tube. TECHNIQUE: Frontal supine view of the abdomen/pelvis. COMPARISON: No relevant prior studies available. FINDINGS/IMPRESSION: 1. Enteric tube with tip and side port in the stomach. Electronically signed by: Alexey Islas M.D. 08/17/24 21:51 PM
--- NOTE | 2024-08-17 21:52 | XRay Report ---
Exam(s): XR CXR 1 VIEW EXAM: XR Chest, 1 View CLINICAL HISTORY: Reason for exam: central line placement. TECHNIQUE: Frontal view of the chest. COMPARISON: 08/09/24 at 1930 hrs. FINDINGS/IMPRESSION: 1. Interval placement of left IJ CVC with tip in the distal SVC. No pneumothorax. 2. Endotracheal tube 2.1 cm from the karoline. Enteric tube remains in place. 3. Right lung opacities. Compared to prior, mildly improved right upper lobe aeration, with mildly worsened opacities in the right lower lung. 3. Mild left basilar opacities, appearing mildly increased. 4. Intraosseous line in the right proximal humerus. 5. No significant pleural effusion. Stable heart size. Stable skeleton. Electronically signed by: Alexey Islas M.D. 08/17/24 21:50 PM
[2024-08-17] MEDS: SODIUM BICARB 8.4% INJ 50 MEQ/50 ML SYR IV SCH ×2 (21:55→23:31)
[2024-08-17] MEDS ORDERED: AcetylCYSTEINE IV 21 HR REGIMEN (>40KG) IV STA (22:52)
[2024-08-17] MEDS ORDERED: STAT IV/IM STA (22:52)
[2024-08-17] MEDS ORDERED: STAT IV Infusion **Titration per Protocol STA ×2 (22:58→23:34)
[2024-08-17 23:12] LABS: iSTAT Allen Test Pass; iSTAT Art Bld Gas pCO2 Correct 35 mmHg (35-46); iSTAT Art Bld Gas pH Corrected 7.038 (7.35-7.45); iSTAT Arterial Blood Gas HCO3 11 meg/L (19-24); iSTAT Arterial Blood Gas pCO2 49 mmHg (35-46); iSTAT Arterial Blood Gas pH 6.95 (7.35-7.45); iSTAT Arterial Blood Gas pO2 79 mmHg (80-95); iSTAT Arterial Blood Gas pO2 C 46; iSTAT Carbon Dioxide 12 mmol/L (24-31); iSTAT FiO2 40 %; iSTAT Hematocrit 33 % (37-47); iSTAT Hemoglobin 11.2 g/dl (12.0-16.0); iSTAT Potassium 4.7 mmol/L (3.3-5.0); iSTAT Sample Type Arterial; iSTAT Site Art Line; iSTAT Sodium 144 mmol/L (135-144); iSTAT SpO2 94
[2024-08-17] MEDS: NOREPINEPHRINE/D5W 4 MG/250 ML PLCT IV SCH (23:12)
[2024-08-17] MEDS: SODIUM CHLORIDE 0.9% 1,000 ML IV SCH ×2 (23:13→23:42)
[2024-08-17] MEDS: 4.5GM X1 IV STA (23:13)
[2024-08-17] MEDS: PANTOprazole 40 MG/10 ML SYR IV ONE (23:13)
[2024-08-17] MEDS: VASOPRESSIN 20 UNITS in SODIUM CHLORIDE 0.9% 100 ML IV SCH (23:17)
[2024-08-17] MEDS: CALCIUM CHLORIDE 10% 1,000 MG in DEXTROSE 5% 50 ML IV STA (23:31)
[2024-08-17] MEDS: SODIUM BICARBONATE 8.4% 150 MEQ in WATER, STERILE 1,000 ML IV SCH (23:42)
[2024-08-17] MEDS ORDERED: EPINEPHrine/NSS 4 MG/254 ML BAG IV SCH (23:45)
[2024-08-18 00:02] LABS: Acetaminophen < 3 ug/ml (10-30); Salicylate < 3.0 mg/dl (3.0-30)
[2024-08-18 00:35] LABS: BUN Creatinine Ratio 6.9 (10-20); Blood Urea Nitrogen 20 mg/dl (6-23); Calcium 5.5 mg/dl (8.6-10.3); Carbon Dioxide > 45 mmol/L (21-32); Chloride 104 mmol/L (98-107); Creatinine Clr Calc Pharmacy 21.6 ml/min; Glucose 115 mg/dl (70-99(Fasting)); Magnesium 3.1 mg/dl (1.7-2.4); Potassium 4.7 mmol/L (3.5-5.1); Sodium 162 mmol/L (136-145)
[2024-08-18 00:35] LABS: Prothrombin Time > 90.0 Seconds (9.0-12.0)
[2024-08-18 00:38] LABS: INR > 10.0 (0.9-1.1)
--- NOTE | 2024-08-18 00:38 | Emergency Department Note ---
Impression & Plan Cardiac arrest, Anoxic brain injury, Cocaine abuse, Overdose of fentanyl ED Provider Note CHIEF COMPLAINT: Cardiac arrest HISTORY OF PRESENT ILLNESS: This 54-year-old female patient was noted to be in the backseat of a car during a routine traffic stop. She was noted by police officers to be unresponsive. The sales warehouse driver of the vehicle stated the patient had been "asleep" since they left [place]. Please officers were unable to wake up the patient and noted she was pulseless. They began CPR and called EMS. Patient apparently was asystolic initially. After IV epinephrine had a shockable rhythm and a V-fib. Cardiac resuscitation was initiated approximately 45 minutes prior to arrival in the emergency department. She had been receiving push dose epinephrine due to low blood pressure and faint pulses. Patient arrives intubated. There is very little history available, no family or friends are with the patient in the emergency department. She is from out of the area. REVIEW OF SYSTEMS: A review of systems was performed with positives and pertinent negatives listed in the history of present illness. 10 systems were reviewed and are otherwise negative. ALLERGIES: see below MEDICATIONS: see below PMH: see below SOCIAL HISTORY: see below DDx: Cardiac arrest, PE, dysrhythmia, electrolyte abnormality, renal failure, substance abuse, overdose among others. PHYSICAL EXAM: Vital signs reviewed. General: Critically ill-appearing 54-year-old female, intubated HEENT: Atraumatic. Conjunctival injection, pupils are dilated and nonreactive. Cardiovascular: Bradycardic, regular with occasional ectopy. Faint palpable pulses. Pulmonary: Clear to auscultation bilaterally, normal work of breathing. Abdomen: Soft, nontender, nondistended, positive bowel sounds. Musculoskeletal: Post CPR traumatic findings noted to the anterior chest/sternum. Neurologic: Patient unresponsive. Skin: Warm, dry, no rash EMERGENCY DEPARTMENT COURSE/MDM: This patient was evaluated and appeared to be critically ill. 2 peripheral IV lines were obtained. Patient was on a norepinephrine drip at the time my evaluation and had received push dose of epinephrine by EMS. She became bradycardic and lost pulses. CPR was reinitiated. A dose of IV epinephrine administered and IV epinephrine drip was initiated. Chest x-ray was performed and reveals a consolidation in the right mid to upper lung field with ET tube in good position. Patient did receive IV fluid bolus of 1 L. Blood pressure did improve but remained hypotensive. She was noted to be profoundly hypothermic and placed on a Melissa hugger with warmed IV fluids. CT imaging of the head was performed and reveals anoxic brain injury. Laboratory work reveals a hyponatremia, TSH of 45, undetectable free T4, elevated troponin, markedly elevated liver enzymes, UDS significant for cocaine and fentanyl. Consultation with the critical care service was placed. BAILEE Sherman has requested 100 mg of IV hydrocortisone and 200 mcg of levothyroxine IV. Case was discussed with the hospitalist service who will evaluate the patient for admission and further management. MONITORING: An order for cardiac monitoring was placed and the patient is noted to be in a bradycardic rhythm, likely junctional at 38 beats per minute. RADIOLOGY: Chest x-ray to my interpretation reveals ET tube in good position, lung consolidation in the right upper lobe, pulmonary vascular congestion. Head CT to my interpretation reveals no evidence of acute intracranial hemorrhage, diffuse anoxic brain injury. CT of the chest: IMPRESSION: 1. Endotracheal tube 1.2 cm from the karoline on medical coding auditor image. Enteric tube extends to the stomach. 2. Subsegmental atelectasis in both lower lobes. Right upper lobe atelectasis/partial collapse with volume loss. No obstructing mass or mucous plug identified by CT. 2. Acute nondisplaced buckle fracture anterior right rib 5. Correlate for recent chest compressions. EKG: To my interpretation reveals a junctional bradycardia at 39 bpm. PVC noted. QTc of 563. Previous anterior infarct with ST changes in the lateral leads appreciated. DISPOSITION: Admission I have personally spent 60 minutes of critical care time in the direct management of this patient. This was a life/limb threatening event. This 60 minutes is in excess of all separately billable procedures. Past Med/Surg History Problem List (Updated 08/18/24 @ 03:15 by Blu Torres MD) Sepsis with acute liver failure and septic shock Admitted to intensive care unit Overdose of fentanyl (Acute) Cocaine abuse (Acute) Rib fracture Prolonged QT interval Elevated troponin Opiate use Abnormal thyroid stimulating hormone (TSH) level Anoxic brain injury (Acute) ARF (acute renal failure) Metabolic acidosis Lactic acidosis Cardiac arrest (Acute) Shock Social History Smoking Status: Unknown if ever smoked Results & Data (ED) Vital Signs Vital Signs - 24 hr 08/17/24 18:57 08/17/24 19:14 08/17/24 19:14 Temperature Temperature Source Pulse Rate 36 L Pulse Rate from SpO2 Sensor Respiratory Rate 16 16 Blood Pressure 103/52 L Blood Pressure Mean 69 Pulse Oximetry 100 100 Oxygen Delivery Method Mechanical Vent Mechanical Vent Fraction of Inspired Oxygen 50 Sepsis Recent Fever Within 48 Hours No Sepsis New/Unexplained Change in Mental Status No Sepsis Action Taken by Nursing No Action Required End-Tidal CO2 35 08/17/24 19:24 08/17/24 19:30 08/17/24 19:39 Temperature 27.5 C L Temperature Source Knott Cath ( Temp Sensing) Pulse Rate 49 L 44 L Pulse Rate from SpO2 Sensor 42 L Respiratory Rate 16 16 Blood Pressure 103/52 L 70/34 L Blood Pressure Mean 69 46 Pulse Oximetry 100 100 Oxygen Delivery Method Fraction of Inspired Oxygen Sepsis Recent Fever Within 48 Hours Sepsis New/Unexplained Change in Mental Status Sepsis Action Taken by Nursing End-Tidal CO2 49 40 08/17/24 19:41 08/17/24 19:43 08/17/24 19:45 Temperature 27.9 C L Temperature Source Pulse Rate 40 L Pulse Rate from SpO2 Sensor 44 L Respiratory Rate 16 Blood Pressure 76/38 L 86/37 L Blood Pressure Mean 50 53 Pulse Oximetry 100 Oxygen Delivery Method Fraction of Inspired Oxygen Sepsis Recent Fever Within 48 Hours Sepsis New/Unexplained Change in Mental Status Sepsis Action Taken by Nursing End-Tidal CO2 35 08/17/24 19:48 08/17/24 20:00 08/17/24 20:54 Temperature 27.9 C L Temperature Source Pulse Rate 40 L 40 L Pulse Rate from SpO2 Sensor 41 L 40 L Respiratory Rate 16 16 Blood Pressure 82/38 L 85/42 L Blood Pressure Mean 49 56 Pulse Oximetry 100 100 Oxygen Delivery Method Fraction of Inspired Oxygen Sepsis Recent Fever Within 48 Hours Sepsis New/Unexplained Change in Mental Status Sepsis Action Taken by Nursing End-Tidal CO2 34 29 Home Medications Current Medication List: was personally reviewed by me Laboratory Data Attestation: I reviewed the patient's lab results. 08/18/24 10:54 08/18/24 10:54 Lab Results 08/17/24 08/17/24 08/17/24 Range/Units 19:20 19:23 19:49 WBC 11.65 H (4.8-10.8) K/ul RBC 5.06 (4.20-5.40) M/uL Hgb 12.4 (12.0-16.0) g/dl POC Hgb 13.9 (12.0-16.0) g/dl Hct 44.4 (37.0-47.0) % POC Hct 41 (37-47) % MCV 87.7 (80.0-100.0) fL MCH 24.5 L (25.0-34.0) pg MCHC 27.9 L (32.0-36.0) g/dL RDW Std Deviation 62.9 H (36.4-46.3) fL RDW Coeff of Jared 20.2 H (11.5-14.5) % Plt Count 130 (130-400) K/uL MPV 10.9 (9.4-12.4) fL Immature Gran % (Auto) 3.4 % Neut % (Auto) 65.5 % Lymph % (Auto) 24.6 % Mobile % (Auto) 6.2 % Eos % (Auto) 0.0 % Baso % (Auto) 0.3 % Neut # (Auto) 7.62 H (1.40-6.50) K/uL Lymph # (Auto) 2.87 (1.20-3.40) K/uL Mobile # (Auto) 0.72 H (0.11-0.59) K/uL Eos # (Auto) 0.00 (0.00-0.50) K/uL Baso # (Auto) 0.04 (0.00-0.20) K/uL Immature Gran # (Auto) 0.40 H (0.01-0.20) K/uL Absolute Nucleated RBC 0.23 H (0.00-0.12) K/uL Nucleated RBC % (auto) 2.0 % Anisocytosis Present Ovalocytes 1+ Echinocytes 1+ PT 13.4 H (9.0-12.0) Seconds INR 1.3 H (0.9-1.1) APTT 70 H (21-31) Seconds PTT Ratio 2.6 POC Sodium 141 (135-144) mmol/L Sodium 147 H (136-145) mmol/L POC Potassium 5.2 H (3.3-5.0) mmol/L Potassium 5.5 H (3.5-5.1) mmol/L POC Chloride 108 (101-112) mmol/L Chloride 102 (98-107) mmol/L Carbon Dioxide 31 (21-32) mmol/L POC Total CO2 17 L (24-31) mmol/L Anion Gap 14 H (3-11) POC Anion Gap 22.0 (16-25) mmol/L POC BUN 20 H (7-18) mg/dl BUN 19 (6-23) mg/dl Creatinine 3.13 H (0.6-1.2) mg/dl POC Creatinine 3.0 H (0.6-1.3) mg/dl Est Cr Clr Drug Dosing 20.7 ml/min eGFR 16.81 BUN/Creatinine Ratio 6.1 L (10-20) Glucose 126 H (70-99(Fasting)) mg/dl POC Glucose (other) 114 H (70-99) mg/dl Osmolality 363 H* (280-300) mOsm/kg Calcium 7.8 L (8.6-10.3) mg/dl POC Ioniz Calcium Pauline 0.88 L (1.12-1.32) mmol/l Magnesium 4.0 H (1.7-2.4) mg/dl Total Bilirubin 0.3 (0.2-1.0) mg/dl AST 2541 H (13-39) U/L ALT > 2500 H (7-52) U/L Alkaline Phosphatase 122 H (34-104) U/L Troponin I High Sens 207.3 H* (0-14) pg/ml Total Protein 5.2 L (6.0-8.3) gm/dl Albumin 3.1 L (3.4-5.0) gm/dl Globulin 2.1 L (2.5-4.0) gm/dl Albumin/Globulin Ratio 1.5 (0.9-2) TSH 45.799 H (0.300-4.500) uIu/ml Free T4 < 0.32 L (0.61-1.60) ng/dl Urine Color Yellow Urine Appearance Turbid A (Clear) Urine pH 5.5 (4.5-7.5) Ur Specific [place] 1.025 (1.000-1.030) Urine Protein 2+ H (Negative) Urine Glucose (UA) Negative (Negative) Urine Ketones Trace H (Negative) Urine Blood Trace H (Negative) Urine Nitrite Negative (Negative) Urine Bilirubin Negative (Negative) Urine Urobilinogen Negative (Negative) Ur Leukocyte Esterase Negative (Negative) Urine WBC (Auto) 11-20 H (0-5) /hpf Urine RBC (Auto) 3-5 H (0-2) /hpf U Hyaline Cast (Auto) 11-20 H (0-2) /lpf U Epithel Cells (Auto) 11-20 H (0-2) /hpf Urine Bacteria (Auto) 4+ H (None Seen) Calcium Oxalate Crystal Present A (None Prsent) Urine Osmolality 685 (500-800) mOsm/kg Urine Opiates Screen Neg (Neg) Ur Methadone, Qual Neg (Neg) Urine Fentanyl Screen Pos H (Neg) Urine Barbiturates Neg (Neg) Ur Phencyclidine (PCP) Neg (Neg) U Amphetamin/Meth Scrn Neg (Neg) MDMA (Ecstasy) Screen Neg (Neg) U Benzodiazepines Scrn Neg (Neg) Ur Cocaine Metabolite Pos H (Neg) U Marijuana (THC) Screen Neg (Neg) Administered Medications Discontinued Medications Atropine Sulfate (Atropine Sulfate 0.1 Mg/Ml 10ml Syr) Confirm Administered Dose 1 mg IV .STK-MED ONE Stop: 08/18/24 05:14 Last Admin: 08/18/24 06:17 Dose: Not Given Documented By: JOSE Calcium Chloride (Calcium Chloride 10% 10 Ml Syr) Confirm Administered Dose 1,000 mg IV .STK-MED ONE Stop: 08/18/24 04:42 Last Admin: 08/18/24 06:13 Dose: Not Given Documented By: JOSE Hydrocortisone Sodium Succinate (Hydrocortisone Sod Succinate 100 Mg/2 Ml Vial) 100 mg IV NOW STA Stop: 08/17/24 20:38 Last Admin: 08/17/24 20:45 Dose: 100 mg Documented By: BRODIE Sodium Chloride (Nss) 1,000 mls @ 999 mls/hr IV .Q1H1M ONE Stop: 08/17/24 20:25 Last Infusion: 08/17/24 20:53 Dose: Infused Documented By: Admin: 08/17/24 19:38 Dose: 999 mls/hr Documented By: BRODIE Epinephrine HCl () 4 mg in 254 mls @ 6.477 mls/hr IV .Q24H REM[facility]; Protocol Stop: 09/16/24 19:29 Last Titration: 08/18/24 06:25 Dose: Infused Documented By: JOSE Co-signed By: BUBBA Titration: 08/17/24 19:58 Dose: 0.2 mcg/kg/min, 64.8 mls/hr Documented By: BRODIE Co-signed By: LEONARDO Admin: 08/17/24 19:53 Dose: 0.15 mcg/kg/min, 48.6 mls/hr Documented By: NRLuda Co-signed By: LEONARDO Levothyroxine Sodium 200 mcg/ (Syringe) 10 mls @ 2 mls/min IV NOW STA; Protocol Stop: 08/17/24 20:42 Last Admin: 08/17/24 21:13 Dose: 2 mls/min Documented By: IDMadi Pantoprazole Sodium (Protonix) 40 mg in 10 mls @ 5 mls/min IV NOW ONE Stop: 08/17/24 23:01 Last Admin: 08/17/24 23:13 Dose: 5 mls/min Documented By: TMAntonina Pantoprazole Sodium (Protonix) 40 mg in 10 mls @ 5 mls/min IV BID [facility] Stop: 09/17/24 08:59 Last Admin: 08/18/24 09:24 Dose: 5 mls/min Documented By: ZARINA Norepinephrine Bitartrate (Levophed/D5w) 4 mg in 250 mls @ 191.25 mls/hr IV .Q1H19M REMEDIOS; Protocol Stop: 09/16/24 21:14 Last Admin: 08/18/24 09:23 Dose: 0.6 mcg/kg/min, 191.3 mls/hr Documented By: ZARINA Co-signed By: OSCAR Titration: 08/18/24 09:07 Dose: Infused Documented By: ZARINA Co-signed By: OSCAR Admin: 08/18/24 07:48 Dose: 0.6 mcg/kg/min, 191.3 mls/hr Documented By: ZARINA Co-signed By: KASSIE Titration: 08/18/24 07:48 Dose: Infused Documented By: ZARINA Co-signed By: KASSIE Admin: 08/18/24 06:34 Dose: 0.6 mcg/kg/min, 191.3 mls/hr Documented By: JOSE Co-signed By: ACACIA Titration: 08/18/24 06:34 Dose: Infused Documented By: JOSE Co-signed By: ACACIA Admin: 08/18/24 06:16 Dose: 0.6 mcg/kg/min, 191.3 mls/hr Documented By: TMG Co-signed By: CP Titration: 08/18/24 02:28 Dose: Infused Documented By: TMG Co-signed By: CP Titration: 08/18/24 02:25 Dose: 0.6 mcg/kg/min, 191.3 mls/hr Documented By: TMG Co-signed By: JT Titration: 08/18/24 00:32 Dose: 0.4 mcg/kg/min, 127.5 mls/hr Documented By: TMG Co-signed By: JT Admin: 08/18/24 00:31 Dose: 0.35 mcg/kg/min, 111.6 mls/hr Documented By: TMG Co-signed By: JAdrianna Titration: 08/18/24 00:31 Dose: Infused Documented By: TMG Co-signed By: JAdrianna Titration: 08/18/24 00:17 Dose: 0.35 mcg/kg/min, 111.6 mls/hr Documented By: TMG Co-signed By: JAdrianna Admin: 08/17/24 23:12 Dose: 0.32 mcg/kg/min, 102 mls/hr Documented By: TMG Co-signed By: CABRERA Piperacillin Sod/Tazobactam Sod (Zosyn) 4.5 gm in 100 mls @ 25 mls/hr IV Q8H REMEDIOS; Protocol Stop: 08/20/24 03:59 Last Admin: 08/18/24 06:19 Dose: 25 mls/hr Documented By: TMG Sodium Chloride (Nss) 1,000 mls @ 999 mls/hr IV .Q1H1M [facility] Stop: 08/17/24 22:17 Last Infusion: 08/18/24 06:26 Dose: Infused Documented By: Admin: 08/17/24 23:42 Dose: 999 mls/hr Documented By: TMG Piperacillin Sod/Tazobactam Sod (Zosyn) 4.5 gm in 100 mls @ 200 mls/hr IV NOW STA; Protocol Stop: 08/17/24 23:20 Last Infusion: 08/18/24 06:26 Dose: Infused Documented By: Admin: 08/17/24 23:13 Dose: 200 mls/hr Documented By: G Sodium Bicarbonate 150 meq/ (Sterile Water) 1,150 mls @ 150 mls/hr IV .Q7H40M [facility] Stop: 09/16/24 22:51 Last Infusion: 08/18/24 06:26 Dose: Infused Documented By: [facility] [place] Admin: 08/17/24 23:42 Dose: 150 mls/hr Documented By: G Sodium Chloride (Nss) 1,000 mls @ 999 mls/hr IV .Q1H1M [facility] Stop: 08/18/24 00:52 Last Admin: 08/18/24 06:16 Dose: Not Given Documented By: Infusion: 08/18/24 00:17 Dose: Infused Documented By: [facility] [place] Admin: 08/17/24 23:13 Dose: 999 mls/hr Documented By: [facility] [place] Acetylcysteine 4,250 mg/ (Dextrose) 521.25 mls @ 130 mls/hr IV 0030 ONE; Protocol Stop: 08/18/24 04:30 Last Infusion: 08/18/24 06:13 Dose: Infused Documented By: [facility] [place] Admin: 08/18/24 00:32 Dose: 130 mls/hr Documented By: [facility] [place] Acetylcysteine 12,750 mg/ (Dextrose) 263.75 mls @ 260 mls/hr IV 2315 ONE; Protocol Stop: 08/18/24 00:15 Last Infusion: 08/18/24 06:14 Dose: Infused Documented By: [facility] [place] Admin: 08/17/24 23:31 Dose: 260 mls/hr Documented By: [facility] [place] Hydrocortisone Sodium (Succinate 100 mg/ Syringe) 2 mls @ 4 mls/min IV Q8H [facility] Stop: 09/17/24 05:59 Last Admin: 08/18/24 06:18 Dose: 4 mls/min Documented By: [facility] [place] Acetylcysteine 7,860 mg/ (Dextrose) 1,039.3 mls @ 65 mls/hr IV 0430 ONE; Protocol Stop: 08/18/24 20:29 Last Admin: 08/18/24 07:28 Dose: 65 mls/hr Documented By: LAF Vasopressin 20 units/ Sodium (Chloride) 101 mls @ 12.12 mls/hr IV .Q8H20M [facility] Stop: 09/16/24 22:59 Last Admin: 08/18/24 06:16 Dose: 0.04 unit/min, 12.1 mls/hr Documented By: JOSE Co-signed By: KATE Infusion: 08/18/24 06:16 Dose: Infused Documented By: JOSE Co-signed By: AKTE Admin: 08/17/24 23:17 Dose: 0.04 unit/min, 12.1 mls/hr Documented By: JOSE Co-signed By: CABRERA Magnesium Sulfate/Dextrose (Magnesium Sulfate / D5w) 1 gm in 100 mls @ 50 mls/hr IV Q2H [facility] Stop: 08/18/24 02:59 Last Admin: 08/18/24 06:24 Dose: Not Given Documented By: JOSE Calcium Chloride 1,000 mg/ (Dextrose) 60 mls @ 240 mls/hr IV NOW STA Stop: 08/17/24 23:31 Last Infusion: 08/18/24 06:25 Dose: Infused Documented By: Admin: 08/17/24 23:31 Dose: 240 mls/hr Documented By: JOSE Epinephrine HCl () 16 mg in 250 mls @ 1.594 mls/hr IV .Q24H REMEDIOS; Protocol Stop: 09/16/24 23:44 Last Titration: 08/18/24 02:03 Dose: 0.5 mcg/kg/min, 39.8 mls/hr Documented By: JOSE Co-signed By: ACACIA Titration: 08/18/24 01:54 Dose: 0.4 mcg/kg/min, 31.9 mls/hr Documented By: JOSE Co-signed By: ACACIA Titration: 08/18/24 01:40 Dose: 0.3 mcg/kg/min, 23.9 mls/hr Documented By: JOSE Co-signed By: ACACIA Admin: 08/18/24 01:23 Dose: 0.2 mcg/kg/min, 15.9 mls/hr Documented By: JOSE Co-signed By: ACACIA Phytonadione 10 mg/ Dextrose 51 mls @ 102 mls/hr IV ONE ONE Stop: 08/18/24 01:14 Last Infusion: 08/18/24 06:25 Dose: Infused Documented By: Admin: 08/18/24 01:19 Dose: 102 mls/hr Documented By: JOSE Sodium Bicarbonate 150 meq/ (Sterile Water) 1,150 mls @ 200 mls/hr IV .Q5H45M [facility] Stop: 09/17/24 04:59 Last Admin: 08/18/24 07:34 Dose: 200 mls/hr Documented By: Infusion: 08/18/24 07:34 Dose: Infused Documented By: Admin: 08/18/24 06:37 Dose: 200 mls/hr Documented By: JOSE Insulin Human Regular 250 (units/ Sodium Chloride) 250 mls @ 4.1 mls/hr IV .Q24H [facility]; Protocol Stop: 09/17/24 05:14 Last Titration: 08/18/24 09:58 Dose: 4.1 units/hr, 4.1 mls/hr Documented By: ZARINA Co-signed By: URVASHI Admin: 08/18/24 08:27 Dose: 2.9 units/hr, 2.9 mls/hr Documented By: ZARINA Co-signed By: KASSIE Pyridoxine HCl 100 mg/ Syringe 11 mls @ 2.2 mls/min IV DAILY [facility] Stop: 09/17/24 08:59 Last Admin: 08/18/24 09:24 Dose: 2.2 mls/min Documented By: ZARINA Thiamine HCl 100 mg/ Syringe 10 mls @ 2 mls/min IV DAILY [facility] Stop: 09/17/24 08:59 Last Admin: 08/18/24 09:23 Dose: 2 mls/min Documented By: ZARINA Insulin Aspart (Insulin Aspart Per Unit Charge) 0 units SC ACHS [facility] Stop: 09/17/24 07:29 Last Admin: 08/18/24 08:30 Dose: 3 units Documented By: ZARINA Co-signed By: KASSIE Ioversol (Optiray 320 100ml) 90 ml IV ONCE ONE Stop: 08/17/24 20:25 Last Admin: 08/17/24 20:24 Dose: 90 ml Documented By: RADHA Sinclairaneous (Stat Iv Infusion Titration Per Protocol) 1 each N/A NOW STA Stop: 08/17/24 19:27 Last Admin: 08/18/24 07:30 Dose: Not Given Documented By: ZARINA Sinclairaneous (Concentrate Norepinephrine Iv Infusion) 1 each N/A NOW ONE Stop: 08/17/24 19:27 Last Admin: 08/18/24 06:25 Dose: Not Given Documented By: TMG Miscellaneous (Stat Iv Infusion Titration Per Protocol) 1 each N/A NOW STA Stop: 08/17/24 21:13 Last Admin: 08/18/24 07:30 Dose: Not Given Documented By: ZARINA Ricks (Icu Electrolyte Replacement Protocol) 1 each N/A BID@06,18 [facility]IOS; Protocol Stop: 08/25/24 05:59 Last Admin: 08/18/24 07:32 Dose: Not Given Documented By: ZARINA Ricks (Icu Protocol For Hyperglycemia) 1 each N/A Q6 [facility] Stop: 08/20/24 00:00 Last Admin: 08/18/24 07:31 Dose: Not Given Documented By: Admin: 08/18/24 01:53 Dose: Not Given Documented By: JOSE Miscellaneous Information (Patient's Allergy Info Needs Entered) 1 each N/A NOW STA Stop: 08/17/24 21:15 Last Admin: 08/18/24 07:30 Dose: Not Given Documented By: ZARINA Sodium Bicarbonate (Sodium Bicarb 8.4% Inj 50 Meq/50 Ml Syr) 50 meq IV Q5M [facility] Stop: 08/17/24 22:04 Last Admin: 08/17/24 22:06 Dose: 50 meq Documented By: Admin: 08/17/24 22:00 Dose: 50 meq Documented By: Admin: 08/17/24 21:55 Dose: 50 meq Documented By: LEONARDO Sodium Bicarbonate (Sodium Bicarb 8.4% Inj 50 Meq/50 Ml Syr) 50 meq IV Q5M [facility] Stop: 08/17/24 23:18 Last Admin: 08/17/24 23:32 Dose: 50 meq Documented By: Admin: 08/17/24 23:32 Dose: 50 meq Documented By: Admin: 08/17/24 23:31 Dose: 50 meq Documented By: KENNETHG Sodium Bicarbonate (Sodium Bicarb 8.4% Inj 50 Meq/50 Ml Syr) 50 meq IV Q5M [facility] Stop: 08/18/24 05:11 Last Admin: 08/18/24 06:37 Dose: 50 meq Documented By: Admin: 08/18/24 06:36 Dose: 50 meq Documented By: Admin: 08/18/24 06:17 Dose: 50 meq Documented By: JOSE Imaging Data Radiologist's Impression: Chest X-Ray 08/17/24 19:26 EXAM: Radiograph of the Chest 1 View INDICATION: Dysrhythmia. TECHNIQUE: Frontal view of the chest. Image obtained at 7:30 PM COMPARISON: None provided. FINDINGS: Lungs and pleural spaces: Mild pulmonary vascular congestion noted. Subsegmental right upper lobe collapse. No pulmonary edema. No pleural effusion or pneumothorax. Heart: Mild enlargement of the cardiac shadow. Mediastinum: Normal contour. Bones/joints: No fracture, erosion or dislocation. Soft tissues: No abnormality noted. No radiopaque foreign body noted. Tubes, lines and devices: The endotracheal tube terminates 2.4 cm above the karoline. Nasogastric tube terminates in the distal gastric body. Upper abdomen: No abnormality noted. IMPRESSION: 1. Lines and tubes as above. 2. Mild pulmonary vascular congestion and partial right upper lobe collapse. Consider mucous plug. ACT 112: N/A Electronically signed by Elida Goode 08-17-2024 7:[address] 08/17/24 19:41 CR Exam(s): CT HEAD Without Contrast EXAM: CT Head Without Intravenous Contrast CLINICAL HISTORY: Reason for exam: cardiac arrest. TECHNIQUE: Axial computed tomography images of the head/brain without intravenous contrast. CTDI is 66.92 mGy and DLP is 1100.35 mGy-cm. Automated exposure control was utilized for the study. A dose lowering technique was utilized adhering to the principles of ALARA. COMPARISON: No relevant prior studies available. FINDINGS: Brain: Focal mild hyperdensity in the anterior right frontal lobe (series 2, image 16 represents beam hardening artifact. No evidence of acute intracranial hemorrhage. Diffuse cerebral edema with sulcal, basal cistern, sylvian fissure, and ventricular narrowing. Diffuse diminution in walters-white matter differentiation. Background of white matter hypodensity, which may represent chronic small vessel ischemic change. No midline shift or herniation. Ventricles: Narrowed. No hydrocephalus. Bones/joints: No acute fracture. Soft tissues: Unremarkable. Sinuses: Unremarkable as visualized. Mastoid air cells: No significant mastoid effusion. IMPRESSION: Diffuse cerebral edema with sulcal, basal cistern, sylvian fissure, and ventricular narrowing. Diffuse diminution in walters-white matter differentiation. Appearance is consistent with global hypoxic-ischemic injury. Communications: Call Doctor Other Electronically signed by: Alexey Islas M.D. 08/17/24 20:[address] 08/17/24 20:07 Exam(s): CT CHEST With Contrast IV Amt: 90 ml optiray 320 EXAM: CT Chest With Intravenous Contrast CLINICAL HISTORY: Reason for exam: cardiac arrest, consolidation. TECHNIQUE: Axial computed tomography images of the chest with intravenous contrast. CTDI is 30 mGy and DLP is 913 mGy-cm. Automated exposure control was utilized for the study. A dose lowering technique was utilized adhering to the principles of ALARA. CONTRAST: Patient received 90 ml optiray 320 of IV contrast COMPARISON: No relevant prior studies available. FINDINGS: Lungs: Subsegmental atelectasis in both lower lobes. Right upper lobe atelectasis/partial collapse with volume loss. No obstructing mass or mucous plug identified by CT. Background of paraseptal emphysema. Pleural space: Unremarkable. No pneumothorax or significant pleural effusion. Heart: Unremarkable. No cardiomegaly. No significant pericardial effusion. No significant coronary artery calcifications. Bones/joints: Acute nondisplaced buckle fracture anterior right rib 5 (series 3, image 28). No other fractures. Soft tissues: Unremarkable. Vasculature: Unremarkable. No aortic aneurysm or dissection. Normal caliber main pulmonary artery. Lymph nodes: Unremarkable. No enlarged lymph nodes. Tubes, lines and devices: Endotracheal tube 1.2 cm from the karoline on medical coding auditor image. Enteric tube extends to the stomach. IMPRESSION: 1. Endotracheal tube 1.2 cm from the [facility] on medical coding auditor image. Enteric tube extends to the stomach. 2. Subsegmental atelectasis in both lower lobes. Right upper lobe atelectasis/partial collapse with volume loss. No obstructing mass or mucous plug identified by CT. 2. Acute nondisplaced buckle fracture anterior right rib 5. Correlate for recent chest compressions. Electronically signed by: Alexey Islas M.D. 08/17/24 21:03 PM Chest X-Ray 08/17/24 21:00 Exam(s): XR CXR 1 VIEW EXAM: XR Chest, 1 View CLINICAL HISTORY: Reason for exam: central line placement. TECHNIQUE: Frontal view of the chest. COMPARISON: 08/09/24 at 1930 hrs. FINDINGS/IMPRESSION: 1. Interval placement of left IJ CVC with tip in the distal SVC. No pneumothorax. 2. Endotracheal tube 2.1 cm from the karoline. Enteric tube remains in place. 3. Right lung opacities. Compared to prior, mildly improved right upper lobe aeration, with mildly worsened opacities in the right lower lung. 3. Mild left basilar opacities, appearing mildly increased. 4. Intraosseous line in the right proximal humerus. 5. No significant pleural effusion. Stable heart size. Stable skeleton. Electronically signed by: Alexey Islas M.D. 08/17/24 21:50 PM KUB X-Ray 08/17/24 21:10 Exam(s): XR KUB EXAM: XR Abdomen, 1 View CLINICAL HISTORY: Reason for exam: check position of NG tube. TECHNIQUE: Frontal supine view of the abdomen/pelvis. COMPARISON: No relevant prior studies available. FINDINGS/IMPRESSION: 1. Enteric tube with tip and side port in the stomach. Electronically signed by: Alexey Islas M.D. 08/17/24 21:51 PM Discharge Plan Visit Data Chief Complaint: Cardiac Arrest/CPR Stated Complaint: Post Cardiac Arrest ED Provider: Barbie Perez Discharge Problem: Cardiac arrest, Anoxic brain injury, Cocaine abuse, Overdose of fentanyl Patient Disposition: Admitted As Inpatient Discharge Instructions Interventions: ED Discharge Assessment Last Done: 08/17/24 22:11
[2024-08-18 00:41] LABS: iSTAT Allen Test Pass; iSTAT Art Bld Gas pCO2 Correct 35 mmHg (35-46); iSTAT Arterial Blood Gas HCO3 13 meg/L (19-24); iSTAT Arterial Blood Gas pCO2 49 mmHg (35-46); iSTAT Arterial Blood Gas pH 7.02 (7.35-7.45); iSTAT Arterial Blood Gas pO2 78 mmHg (80-95); iSTAT Arterial Blood Gas pO2 C 46; iSTAT Carbon Dioxide 14 mmol/L (24-31); iSTAT FiO2 90 %; iSTAT Hematocrit 26 % (37-47); iSTAT Hemoglobin 8.8 g/dl (12.0-16.0); iSTAT Potassium 4.6 mmol/L (3.3-5.0); iSTAT Sample Type Arterial; iSTAT Site Art Line; iSTAT Sodium 146 mmol/L (135-144); iSTAT SpO2 93
[2024-08-18] MEDS: PHYTONADIONE 10 MG in DEXTROSE 5% 50 ML IV ONE (01:19)
[2024-08-18] MEDS: MAX IV SCH (01:23)
[2024-08-18] MEDS: [UNRECOGNIZED DRUG - OTHER] IV SCH (01:23)
[2024-08-18] MEDS: ICU Protocol for HYPERglycemia SCH (01:53)
[2024-08-18 04:17] LABS: iSTAT Allen Test Pass; iSTAT Art Bld Gas pCO2 Correct 38 mmHg (35-46); iSTAT Arterial Blood Gas HCO3 8 meg/L (19-24); iSTAT Arterial Blood Gas pCO2 49 mmHg (35-46); iSTAT Arterial Blood Gas pH 6.84 (7.35-7.45); iSTAT Arterial Blood Gas pO2 46 mmHg (80-95); iSTAT Arterial Blood Gas pO2 C 31; iSTAT Carbon Dioxide 10 mmol/L (24-31); iSTAT FiO2 100 %; iSTAT Hematocrit 26 % (37-47); iSTAT Hemoglobin 8.8 g/dl (12.0-16.0); iSTAT Potassium 5.5 mmol/L (3.3-5.0); iSTAT Sample Type Arterial; iSTAT Site Art Line; iSTAT Sodium 139 mmol/L (135-144); iSTAT SpO2 42
[2024-08-18 04:27] LABS: Hematocrit (blood only) 29.3 % (37.0-47.0); Hemoglobin 8.4 g/dl (12.0-16.0); Mean Corpuscular Hemoglobin 24.1 pg (25.0-34.0); Mean Corpuscular Hgb Conc 28.7 g/dL (32.0-36.0); Mean Corpuscular Volume 84.2 fL (80.0-100.0); Mean Platelet Volume 10.6 fL (9.4-12.4); Nucleated RBC # (auto) 0.39 K/uL (0.00-0.12); Nucleated RBC % (auto) 5.3 %; Platelet Count 88 K/uL (130-400); RDW Coefficient of Variation 19.9 % (11.5-14.5); RDW Standard Deviation 60.4 fL (36.4-46.3); Red Blood Count 3.48 M/uL (4.20-5.40); White Blood Count 7.36 K/ul (4.8-10.8)
[2024-08-18 04:49] LABS: Partial Thromboplastin Ratio > 4.9
[2024-08-18 04:51] LABS: Prothrombin Time > 90.0 Seconds (9.0-12.0)
[2024-08-18 04:52] LABS: INR > 10.0 (0.9-1.1)
[2024-08-18 04:53] LABS: Partial Thromboplastin Time > 139 Seconds (21-31)
[2024-08-18 04:54] LABS: Alanine Aminotransferase > 2500 U/L (7-52); Albumin Globulin Ratio 1.4 (0.9-2); Albumin Level 1.8 gm/dl (3.4-5.0); Alkaline Phosphatase 167 U/L (34-104); Anion Gap 14 (3-11); Aspartate Aminotransferase 6395 U/L (13-39); BUN Creatinine Ratio 6.4 (10-20); Bilirubin,Total 0.5 mg/dl (0.2-1.0); Blood Urea Nitrogen 21 mg/dl (6-23); Calcium 6.7 mg/dl (8.6-10.3); Carbon Dioxide 35 mmol/L (21-32); Chloride 98 mmol/L (98-107); Creatinine Clr Calc Pharmacy 19.1 ml/min; Globulin 1.3 gm/dl (2.5-4.0); Glucose 314 mg/dl (70-99(Fasting)); Magnesium 3.5 mg/dl (1.7-2.4); Phosphorus 20.1 mg/dl (2.5-4.9); Potassium 5.9 mmol/L (3.5-5.1); Sodium 147 mmol/L (136-145); Total Protein 3.1 gm/dl (6.0-8.3)
--- NOTE | 2024-08-18 04:54 | Communication Note ---
Date of Service: August 18, 2024 Patient unfortunately progressed with worsening hypoxia, bradycardia, and remains with severe acidosis- She has now a palpable pulse. Code blue was called, CPR was initiated. See Code sheet. - She received 1 amp of Atropine and 1 amp of Epinephrine with CPR - She remains with severe metabolic acidosis - 3 amps more of NAHCo3 and Bicarb infusion increased - Hypoxia worsening despite increasing PEEP likely entering ARDS from MODS and sever acidemia - She has remained on max dose Epi, Vaso, and Levophed for support - Hyperkalemia at 5.9 likely in response to severe acidosis and worsening renal failure- anuric for past 2 hours - Hyperglycemia will place on insulin infusion - 3 amps of Bicarb will provide some hyperosmolar benefit as well and continue supportive care - INR remains >10, HGB drop to 8.4 and Platelets down to 88 - Temperature is mildly improving Patient continues to clinically worsen despite maximal medical support at this time with refractory acidosis and worsening renal function and pulmonary reserve. Will obtain STAT head CT to eval for any herniation syndrome or shift. Coding Level of Care Code None
[2024-08-18] MEDS ORDERED: STAT IV Infusion **Titration per Protocol STA (05:05)
[2024-08-18] MEDS ORDERED: INSULIN PROTOCOL GOAL RANGE ONE (05:05)
[2024-08-18 05:14] LABS: Basophils # (auto) 0.03 K/uL (0.00-0.20); Basophils % (auto) 0.4 %; Echinocytes 2+; Eosinophils # (auto) 0.02 K/uL (0.00-0.50); Eosinophils % (auto) 0.3 %; Immature Granulocytes # (auto) 0.67 K/uL (0.01-0.20); Immature Granulocytes % (auto) 9.1 %; Lymphocytes % (auto) 20.4 %; Monocytes # (auto) 0.04 K/uL (0.11-0.59); Monocytes % (auto) 0.5 %; Neutrophils % (auto) 69.3 %; Polychromasia 2+; Toxic Vacuolation 1+
[2024-08-18] MEDS: CALCIUM CHLORIDE 10% 10 ML SYR IV ONE (06:13)
[2024-08-18] MEDS: ATROPINE SULFATE 0.1 MG/ML 10ML SYR IV ONE (06:17)
[2024-08-18] MEDS: SODIUM BICARB 8.4% INJ 50 MEQ/50 ML SYR IV SCH (06:17)
[2024-08-18] MEDS: HYDROCORTISONE SOD 100 MG in SYRINGE 0 ML IV SCH (06:18)
[2024-08-18] MEDS: PIPERACILLIN/TAZOBACTAM 4.5 GM/100 ML BAG IV SCH (06:19)
--- NOTE | 2024-08-18 06:21 | CT Scan Report ---
EXAM: CT head/brain wo con CLINICAL HISTORY: eval for worsening edema/herniation TECHNIQUE: Multiple axial images are obtained from the skull base to the vertex without contrast. CT scan was performed according to ALARA (as low as reasonable achievable). COMPARISON: None. FINDINGS: Diffuse bilateral cerebral edema is seen in the form of reduce density with loss of walters white matter differentiation ,effacement of sulci, basal cisterns and ventricles Diffuse bilateral cerebellar edema with effacement of folia and fourth ventricle. Mild tonsillar ectopia with about 3 mm below the level of foramen magnum. No evidence of space occupying lesion, hemorrhage,, midline shift, extra axial collection, or hydrocephalus is noted. The walters-white matter differentiation is lost. Mild bilateral ethmoid sinusitis. Rest of paranasal sinuses and mastoid air cells are well aerated. Orbital contents are within normal limits. Bony structures are intact. IMPRESSION: 1. Diffuse bilateral cerebral edema is seen in the form of reduce density with loss of walters white matter differentiation ,effacement of sulci, basal cisterns and ventricles 2. Diffuse bilateral cerebellar edema with effacement of folia and fourth ventricle. 3. Mild tonsillar ectopia with about 3 mm below the level of foramen magnum. Electronically signed by Jaime Garcia 08-18-2024 06:21 AM
[2024-08-18] MEDS: MAGNESIUM SULFATE / D5W 1 GM/100 ML BAG IV SCH (06:24)
[2024-08-18] MEDS: Concentrate Norepinephrine IV Infusion ONE (06:25)
[2024-08-18 06:32] LABS: Glucose 307 mg/dl (70-99(Fasting))
[2024-08-18] MEDS: SODIUM BICARBONATE 8.4% 150 MEQ in WATER, STERILE 1,000 ML IV SCH (06:37)
--- NOTE | 2024-08-18 06:50 | Billing Data ---
Date of Service August 18, 2024 Coding Level of Care Code 34249 CRITICAL CARE 1ST 30-74M Time Spent (min) 55 Comment critical care time 55 minutes
[2024-08-18 07:19] LABS: Creatine Kinase 33606 U/L (26-192)
[2024-08-18] MEDS: DEXTROSE 5% IV ONE (07:28)
[2024-08-18] MEDS: ACETYLCYSTEINE IV ONE (07:28)
[2024-08-18] MEDS: Patient's ALLERGY Info needs ENTERED STA (07:30)
[2024-08-18] MEDS: STAT IV Infusion **Titration per Protocol STA ×2 (07:30)
[2024-08-18] MEDS: ICU ELECTROLYTE REPLACEMENT PROTOCOL SCH (07:32)
--- NOTE | 2024-08-18 07:45 | Critical Care Progress Note ---
Date of Service August 18, 2024 Assessment & Plan (1) Shock: (2) Cardiac arrest: (3) Lactic acidosis: (4) Metabolic acidosis: (5) ARF (acute renal failure): (6) Anoxic brain injury: (7) Abnormal thyroid stimulating hormone (TSH) level: (8) Opiate use: (9) Elevated troponin: (10) Prolonged QT interval: (11) Rib fracture: Plan Reason Critically Ill: 54 YOF presents as Out of Hospital cardiac arrest following being found in back seat of car with unknown downtime- severe metabolic acidosis, lactic acidosis, multiorgan failure and concern for anoxic brain injury. Patient is requiring high doses of multiple vasopressor agents and remains with refractory shock, refractory acidosis and hypothermia. Neuro - Concern for anoxic brain injury, cerebral edema, unresponsive following cardiac arrest, opioid use CAM ICU: NESTOR - Patient presents post ROSC from cardiac arrest following being found in back seat of car without unknown down time. -Initial head CT at this time is interpreted as diffuse diminution of walters- white matter differentiation, which is consistent with global hypoxic-ischemic injury- - Continue with supportive care at this time- maintaining spo2 >95%, Obtain normothermia of 36.0C- at minimal 34 deg C following ROSC, normalize PH as able, - With her cerebral edema, there is no shift at this time, ventricles narrowed- likely already hyperosmolar secondary to bicarb pushes Cardiac - Shock, multiorgan failure, ROSC following cardiac arrest, prolonged qtc, elevated HsCTNI --Shock Multifactorial - Patient in profound shock and multiorgan failure at this time following following unknown hypoxic down time - Received 4 liters of crystalloid at this time - hold further secondary to peripheral edema as well as scleral edema - has been treated for possible decompensated hypothyroidism as her TSH is 49 with low T4 in setting of severe hypothermia and arrest- see Endo section - continue support with bicarb infusion -- Prolonged QTc Avoid QT prolonging medication Keep K >4, Mag >2 and Phos >3 Respiratory - Respiratory failure requiring intubation in setting of cardiac arrest CT chest 08/17/2024 personally reviewed: Centrilobular emphysema appreciated bilaterally Patchy opacity appreciated in the right upper lobe Atelectasis right lower lobe Small anterior right-sided pneumothorax Pneumomediastinum No significant mediastinal lymphadenopathy -- Small right-sided anterior pneumo and pneumomediastinum Likely from CPR No intervention needed currently --Opacity in the right upper lobe likely represents contusion/atelectasis Continue to monitor GI - Elevated LFTS --Transaminitis with hematemesis - Likely secondary to shock liver - Now with flaca blood from OGT at 12:00- INR and Fibrinogen are pending- likely progressing to irreversible DIC RENAL/LYTES - ARF, multiple electrolyte abnormalities, lactic acidosis, --Rhabdomyolysis with phosphorus of 20 Continue with IV fluids CPK 33,606 Patient is too unstable for dialysis --High anion gap metabolic acidosis Likely from lactic acidosis - serum osmo 383, ETOH <10, osmolar gap 55 Ascending glycol and methanol level has been normal -- Hypernatremia with hyperchloremia - UTI likely - Zosyn continue support ENDO - abnormal TSH --Hypothyroidism With her bradycardia, hypothermia and elevated TSH with low T4 in setting of refractory shock- hydrocortisone 100mg and T4 200mg IV given Continue with hydrocortisone 100mg IV q8 and maintenance of IV 50 mcg levothyroxine HEME - DIC --Coagulopathy INR greater than 10 Initial fibrinogen was greater than 800 Clinical picture does go with DIC ID - Poss UTI -- Possible UTI and aspiration pneumonia continue Zosyn DISPO: ICU as requiring multipressor support in setting of multiorgan failure. Patient unfortunately has had an unknown time of down before being found by first responders as well as >45 minutes via ambulance to EMD. She has refractory shock and refractory acidemia. --Prophylaxis VTE: None GI: Pantoprazole twice daily Lines: Left IJ, left radial Knott, peripheral Diet: N.p.o. Plan: In/out: +5.2 L, urine output 926 ABG 6.84/49/46 on PEEP 12, 100% PEEP was actually increased to 15 based on the above ABG. I do not think this is recruitment issue but rather a perfusion issue given the patient's MAP has been in the low 50s. I will go down on the PEEP to 8. Given the osmolar gap of 55, I will empirically give the patient fomepizole 15 Mg per KG loading dose followed by 10 Mg per KG twice daily Thiamine 100 mg daily, pyridoxine 100 mg daily Unfortunately patient's multiorgan failure including but not limited to liver failure, cerebral edema, acute renal failure, persistent pH of 6.84, while on 3 vasopressors is not compatible with life. Would not recommend CPR moving forward as this will be inappropriate and resulted in more suffering to the patient. Case was discussed with Dr. Huitron who was in agreement I have personally spent 60 minutes of critical care time in the direct management of this patient. This is a life/limb threatening event. This includes time spent evaluating patient, direct bedside care, chart review, placing orders, interpretation of diagnostic studies, discussion with consultants, patient, and family members, as well as other required patient management activities. This time is exclusive of all separately billable procedures, and teaching time and separate from and in addition to any other critical care service time. Please note the above document was generated using voice recognition software. It may contain grammatical, syntax or spelling errors. Admission and Anticipated Discharge Date Admission Date: August 17, 2024 Subjective Patient seen and examined at bedside. On max Levophed, epinephrine with A-line systolic reading still in the 40s Temperature was 31.2 C She was breathing with the went Not on any sedation Review of Systems 2 Review of Systems: Unobtainable due to endotracheal tube Physical Exam 2 Physical Exam: Constitutional: No acute distress HEENT: Bilateral dilated nonreactive pupil, no corneal reflex Respiratory system: Decreased air entry bilaterally, no wheeze, no rhonchi, positive crackles bilaterally CVS: S1-S2 positive Abdomen: Soft, nontender, nondistended, positive bowel sounds x4 Extremities: Diminished pulses bilaterally radialis/ dorsalis pedis, no cyanosis, no edema Neuro: Breathing with the vent, no corneal, no gag, no pupillary Psych: Unable to assess G/U: Positive Knott Skin: no rashes, warm and dry Lymphatic: no cervical or axillary lymphadenopathy Results & Data Results & Data Vital Signs (Past 12 Hours) Vital Signs Temp Pulse Resp BP Pulse Ox Pulse Ox O2 Del Method 08/18/24 06:06 31.3 C L 63 26 H 66 L 08/18/24 05:57 31.3 C L 54 L 26 H 08/18/24 05:54 31.3 C L 61 26 H 08/18/24 05:42 31.4 C L 67 26 H 60 L 08/18/24 05:00 31.4 C L 81 26 H 83/54 L 79 L 08/18/24 04:55 91/44 L 08/18/24 04:39 31.5 C L 78 0 L 69 L 08/18/24 04:38 66/56 L 08/18/24 04:34 55/45 L 08/18/24 04:33 31.5 C L 66 0 L 68 L 08/18/24 04:27 31.5 C L 37 L 0 L 41 L 08/18/24 04:21 31.5 C L 45 L 26 H 14 L 08/18/24 04:09 31.5 C L 39 L 0 L 39 L 08/18/24 04:00 08/18/24 03:54 31.5 C L 43 L 22 35 L 08/18/24 03:48 31.5 C L 42 L 16 40 L 08/18/24 03:37 39 L 26 H 65 L 08/18/24 03:30 31.4 C L 48 L 26 H 65 L 08/18/24 03:27 31.4 C L 45 L 26 H 63 L 08/18/24 03:15 31.3 C L 51 L 26 H 50/26 L 44 L 08/18/24 03:09 31.3 C L 51 L 26 H 45 L 08/18/24 03:06 31.2 C L 50 L 26 H 54/31 L 51 L 08/18/24 02:48 31.1 C L 54 L 26 H 57 L 08/18/24 02:45 31.0 C L 54 L 26 H 58 L 08/18/24 02:41 48/28 L 08/18/24 02:30 30.9 C L 54 L 26 H 60 L 08/18/24 02:27 30.8 C L 55 L 26 H 59 L 08/18/24 02:25 60/27 L 08/18/24 02:11 71/26 L 08/18/24 01:51 30.5 C L 54 L 26 H 70/30 L 65 L 08/18/24 01:48 30.5 C L 54 L 26 H 64 L 08/18/24 01:42 100 08/18/24 01:40 67/33 L 08/18/24 01:33 30.3 C L 53 L 26 H 68 L 08/18/24 01:30 73/31 L 08/18/24 01:30 30.3 C L 55 L 26 H 67 L 08/18/24 01:27 30.2 C L 53 L 26 H 63/30 L 68 L 08/18/24 01:23 73/32 L 08/18/24 01:18 30.1 C L 55 L 26 H 74 L 08/18/24 01:15 71/36 L 08/18/24 01:03 30.0 C L 55 L 26 H 77 L 08/18/24 01:02 89/32 L 08/18/24 01:00 29.9 C L 55 L 26 H 78 L 08/18/24 00:49 89/35 L 08/18/24 00:46 88/45 L 08/18/24 00:30 101/39 L 08/18/24 00:21 29.5 C L 52 L 24 93 08/18/24 00:15 108/40 L 08/18/24 00:15 29.5 C L 52 L 24 91 08/18/24 00:12 29.4 C L 52 L 24 90 08/18/24 00:09 29.4 C L 52 L 24 89 L 08/18/24 00:07 08/18/24 00:00 113/39 L 08/17/24 23:55 116/41 L 08/17/24 23:52 43 L 24 95 08/17/24 23:50 113/44 L 08/17/24 23:48 Mechanical Vent 08/17/24 23:48 29.2 C L 08/17/24 23:45 104/43 L 08/17/24 23:40 104/41 L 08/17/24 23:35 103/36 L 08/17/24 23:26 69/42 L 08/17/24 23:21 83/29 L 08/17/24 23:15 80/28 L 08/17/24 23:10 91/36 L 08/17/24 23:03 28.9 C L 44 L 21 92 08/17/24 23:01 96/34 L 08/17/24 23:00 28.9 C L 44 L 20 94 08/17/24 22:57 28.9 C L 44 L 22 94 08/17/24 22:56 110/34 L 08/17/24 22:45 28.8 C L 43 L 16 103/32 L 96 08/17/24 22:42 28.8 C L 43 L 16 95 08/17/24 22:34 91/34 L 08/17/24 22:31 75/31 L 08/17/24 22:30 28.7 C L 44 L 14 100 08/17/24 22:27 45 L 8 L 08/17/24 22:11 46 L 16 87/42 L 100 Mechanical Vent 08/17/24 20:54 27.9 C L 40 L 16 85/42 L 100 08/17/24 20:00 82/38 L 08/17/24 19:48 40 L 16 100 08/17/24 19:45 40 L 16 86/37 L 100 O2 Del Method FiO2 08/18/24 06:06 08/18/24 05:57 08/18/24 05:54 08/18/24 05:42 08/18/24 05:00 08/18/24 04:55 08/18/24 04:39 08/18/24 04:38 08/18/24 04:34 08/18/24 04:33 08/18/24 04:27 08/18/24 04:21 08/18/24 04:09 08/18/24 04:00 100 08/18/24 03:54 08/18/24 03:48 08/18/24 03:37 100 08/18/24 03:30 08/18/24 03:27 08/18/24 03:15 08/18/24 03:09 08/18/24 03:06 08/18/24 02:48 08/18/24 02:45 08/18/24 02:41 08/18/24 02:30 08/18/24 02:27 08/18/24 02:25 08/18/24 02:11 08/18/24 01:51 08/18/24 01:48 08/18/24 01:42 Mechanical Vent 08/18/24 01:40 08/18/24 01:33 08/18/24 01:30 08/18/24 01:30 08/18/24 01:27 08/18/24 01:23 08/18/24 01:18 08/18/24 01:15 08/18/24 01:03 08/18/24 01:02 08/18/24 01:00 08/18/24 00:49 08/18/24 00:46 08/18/24 00:30 08/18/24 00:21 08/18/24 00:15 08/18/24 00:15 08/18/24 00:12 08/18/24 00:09 08/18/24 00:07 40 08/18/24 00:00 08/17/24 23:55 08/17/24 23:52 40 08/17/24 23:50 08/17/24 23:48 08/17/24 23:48 08/17/24 23:45 08/17/24 23:40 08/17/24 23:35 08/17/24 23:26 08/17/24 23:21 08/17/24 23:15 08/17/24 23:10 08/17/24 23:03 08/17/24 23:01 08/17/24 23:00 08/17/24 22:57 08/17/24 22:56 08/17/24 22:45 08/17/24 22:42 08/17/24 22:34 08/17/24 22:31 08/17/24 22:30 08/17/24 22:27 08/17/24 22:11 08/17/24 20:54 08/17/24 20:00 08/17/24 19:48 08/17/24 19:45 Laboratory Results 08/18/24 03:45 Coding Level of Care Code 31131 CRITICAL CARE 1ST 30-74M Diagnoses Shock R57.9 Cardiac arrest I46.9 Lactic acidosis E87.20 Metabolic acidosis E87.20 ARF (acute renal failure) N17.9 Anoxic brain injury G93.1 Abnormal thyroid stimulating hormone (TSH) level R79.89 Opiate use F11.90 Elevated troponin R79.89 Prolonged QT interval R94.31 Rib fracture S22.39XA
[2024-08-18] MEDS: INSULIN REGULAR 250 UNITS in SODIUM CHLORIDE 0.9% 247.5 ML IV SCH (08:27)
[2024-08-18] MEDS: INSULIN ASPART PER UNIT CHARGE SC SCH (08:30)
[2024-08-18] MEDS ORDERED: FOMEPIZOLE IV ONE (08:45)
[2024-08-18] MEDS ORDERED: DEXTROSE 5% IV ONE (08:45)
[2024-08-18] MEDS: THIAMINE HCL 100 MG in SYRINGE 9 ML IV SCH (09:23)
[2024-08-18] MEDS: PANTOprazole 40 MG/10 ML SYR IV SCH (09:24)
[2024-08-18] MEDS: PYRIDOXINE HCL 100 MG in SYRINGE 10 ML IV SCH (09:24)
[2024-08-18] MEDS ORDERED: MAX Conc; 16mg in 250mL IV SCH (09:30)
[2024-08-18] MEDS ORDERED: Max Conc; 16 MG in 250mL for HYPOTENSION IV SCH (09:45)
--- NOTE | 2024-08-18 10:00 | Hospitalist Progress Note ---
Date of Service August 18, 2024 Assessment & Plan (1) Sepsis with acute liver failure and septic shock: (2) Overdose of fentanyl: (3) Cardiac arrest: (4) Cocaine abuse: (5) Anoxic brain injury: (6) ARF (acute renal failure): (7) Admitted to intensive care unit: Plan The patient is a 54-year-old female with unknown past medical history, who presents to the emergency department in an unresponsive state status post intubation in the field.The patient was brought to the emergency department by police officers, after being found unresponsive in the backseat of a vehicle during a routine traffic stop. The deliver driver the vehicle stated that the patient had been asleep since they had left [place] earlier in the day. When police officers were unable to wake the patient up, and they noted she was pulseless, they began CPR, and called EMS. The patient reportedly was a systoli c initially, and after IV epinephrine has shockable rhythm and V-fib. Cardiac resuscitation was initiated approximately 45 minutes prior to arrival in the emergency department. She had been receiving push dose epinephrine due to low blood pressure and faint pulses in the interim. When patient arrived to the emergency department, she was intubated, and history was primarily obtained as noted. There were no family or friends available with the patient in the emergency department. At the time of the [facility] and a hospitalist service assessment, the patient was intubated, and unresponsive. In the emergency department, patient received treatment including the following: Epinephrine infusion, normal saline 3 L boluses, hydrocortisone 100 mg IV, levothyroxine 200 mg IV. Significant abnormal laboratories: AST 2541, ALT greater than 2500, TSH 45.797, magnesium 4.0, potassium 5.5, creatinine 3.13. CT scan of head showed diffuse cerebral edema with sulcal, basal cistern, sylvian fissure, and ventricular narrowing. Diffuse diminution in walters-white matter differentiation. Appearance consistent with global hypoxic-ischemic injury. Patient was referred to [facility] service for admission to the ICU for ongoing care. #Futile care, after examination patient review of her chart and discussion with intensive care physician Dr. Vasquez I am in agreement that we are in a situation of futile care. The patient is having progressive acidemia and multiorgan failure likely result from previous prolonged time without adequate ventilation or perfusion. Imaging the brain is consistent with anoxic brain injury. Decision to change patient's DNR status to DNR and do not advance care at this point in time patient will remain on multiple support mechanisms and will survey for signs of improvement although her outlook is serious and pt at 1237 hours on 08/18/24 #Sepsis/acute liver failure/acute kidney failure/anoxic brain injury/septic shock- Patient admitted to intensive care unit on ventilator, with consult to mechanical service specialist team epinephrine drip CT with extensive changes suggestive of significant anoxic brain injury Acute liver failure/DIC/coagulopathy Initial INR 1.3, with follow-up greater than 10.0 pH remained below 7 despite resusitation Lactate greater than 17.0 Acute kidney failure- NSTEMI s/p cardiac arrest- Positive urine drug screen- Cocaine positive with confirmation test pending Fentanyl positive with confirmation test pending Urinary tract infection- Zosyn 4.5 g IV every 8 hours Pulmonary- CT chest with multiple lung opacities-multpfocal pneumonia MRSA swab, coverage of positive Admission and Anticipated Discharge Date Admission Date: August 17, 2024 Subjective Patient was assessed in ICU. She is unresponsive to painful stimuli her pupils are nonreactive she has no palpable pulse with dopplerable pulse. Blood pressure is low. Heart tones are barely audible. Attempt to contact family listed in the chart which includes Vasile Winslow and jimmy Matt. Voice message was left for Rashad Winslow number did not change to voicemail capability decision not to escalate care made due to severity of illness and not being able to reach family, pt eventually developed PEA and at 1237 hours on 08/18/24 Physical Exam Physical Exam: Patient is edematous she is got scleral edema pupils are nonreactive heart tones are distant pulses are not palpable there is electrical activity on the cardiac exercise physiologist and pulses are able to be found by deep Doppler Results & Data Results & Data Vital Signs (Past 12 Hours) Vital Signs Temp Pulse Resp BP Pulse Ox Pulse Ox O2 Del Method 08/18/24 08:06 26 H 08/18/24 08:01 56 L 26 H 50 L 08/18/24 07:30 08/18/24 06:06 88.3 F L 63 26 H 66 L 08/18/24 05:57 88.3 F L 54 L 26 H 08/18/24 05:54 88.3 F L 61 26 H 08/18/24 05:42 88.5 F L 67 26 H 60 L 08/18/24 05:00 88.5 F L 81 26 H 83/54 L 79 L 08/18/24 04:55 91/44 L 08/18/24 04:39 88.7 F L 78 0 L 69 L 08/18/24 04:38 66/56 L 08/18/24 04:34 55/45 L 08/18/24 04:33 88.7 F L 66 0 L 68 L 08/18/24 04:27 88.7 F L 37 L 0 L 41 L 08/18/24 04:21 88.7 F L 45 L 26 H 14 L 08/18/24 04:09 88.7 F L 39 L 0 L 39 L 08/18/24 04:00 08/18/24 03:54 88.7 F L 43 L 22 35 L 08/18/24 03:48 88.7 F L 42 L 16 40 L 08/18/24 03:37 39 L 26 H 65 L 08/18/24 03:30 88.5 F L 48 L 26 H 65 L 08/18/24 03:27 88.5 F L 45 L 26 H 63 L 08/18/24 03:15 88.3 F L 51 L 26 H 50/26 L 44 L 08/18/24 03:09 88.3 F L 51 L 26 H 45 L 08/18/24 03:06 88.2 F L 50 L 26 H 54/31 L 51 L 08/18/24 02:48 88.0 F L 54 L 26 H 57 L 08/18/24 02:45 87.8 F L 54 L 26 H 58 L 08/18/24 02:41 48/28 L 08/18/24 02:30 87.6 F L 54 L 26 H 60 L 08/18/24 02:27 87.4 F L 55 L 26 H 59 L 08/18/24 02:25 60/27 L 08/18/24 02:11 71/26 L 08/18/24 01:51 86.9 F L 54 L 26 H 70/30 L 65 L 08/18/24 01:48 86.9 F L 54 L 26 H 64 L 08/18/24 01:42 100 08/18/24 01:40 67/33 L 08/18/24 01:33 86.5 F L 53 L 26 H 68 L 08/18/24 01:30 73/31 L 08/18/24 01:30 86.5 F L 55 L 26 H 67 L 08/18/24 01:27 86.4 F L 53 L 26 H 63/30 L 68 L 08/18/24 01:23 73/32 L 08/18/24 01:18 86.2 F L 55 L 26 H 74 L 08/18/24 01:15 71/36 L 08/18/24 01:03 86.0 F L 55 L 26 H 77 L 08/18/24 01:02 89/32 L 08/18/24 01:00 85.8 F L 55 L 26 H 78 L 08/18/24 00:49 89/35 L 08/18/24 00:46 88/45 L 08/18/24 00:30 101/39 L 08/18/24 00:21 85.1 F L 52 L 24 93 08/18/24 00:15 108/40 L 08/18/24 00:15 85.1 F L 52 L 24 91 08/18/24 00:12 84.9 F L 52 L 24 90 08/18/24 00:09 84.9 F L 52 L 24 89 L 08/18/24 00:07 08/18/24 00:00 113/39 L 08/17/24 23:55 116/41 L 08/17/24 23:52 43 L 24 95 08/17/24 23:50 113/44 L 08/17/24 23:48 Mechanical Vent 08/17/24 23:48 84.6 F L 08/17/24 23:45 104/43 L 08/17/24 23:40 104/41 L 08/17/24 23:35 103/36 L 08/17/24 23:26 69/42 L 08/17/24 23:21 83/29 L 08/17/24 23:15 80/28 L 08/17/24 23:10 91/36 L 08/17/24 23:03 84.0 F L 44 L 21 92 08/17/24 23:01 96/34 L 08/17/24 23:00 84.0 F L 44 L 20 94 08/17/24 22:57 84.0 F L 44 L 22 94 02/28/25 22:56 110/34 L 08/17/24 22:45 83.8 F L 43 L 16 103/32 L 96 08/17/24 22:42 83.8 F L 43 L 16 95 08/17/24 22:34 91/34 L 08/17/24 22:31 75/31 L 08/17/24 22:30 83.7 F L 44 L 14 100 08/17/24 22:27 45 L 8 L 08/17/24 22:11 46 L 16 87/42 L 100 Mechanical Vent O2 Del Method FiO2 08/18/24 08:06 100 08/18/24 08:01 100 08/18/24 07:30 100 08/18/24 06:06 08/18/24 05:57 08/18/24 05:54 08/18/24 05:42 08/18/24 05:00 08/18/24 04:55 08/18/24 04:39 08/18/24 04:38 08/18/24 04:34 08/18/24 04:33 08/18/24 04:27 08/18/24 04:21 08/18/24 04:09 08/18/24 04:00 100 08/18/24 03:54 08/18/24 03:48 08/18/24 03:37 100 08/18/24 03:30 08/18/24 03:27 08/18/24 03:15 08/18/24 03:09 08/18/24 03:06 08/18/24 02:48 08/18/24 02:45 08/18/24 02:41 08/18/24 02:30 08/18/24 02:27 08/18/24 02:25 08/18/24 02:11 08/18/24 01:51 08/18/24 01:48 08/18/24 01:42 Mechanical Vent 08/18/24 01:40 08/18/24 01:33 08/18/24 01:30 08/18/24 01:30 08/18/24 01:27 08/18/24 01:23 08/18/24 01:18 08/18/24 01:15 08/18/24 01:03 08/18/24 01:02 08/18/24 01:00 08/18/24 00:49 08/18/24 00:46 08/18/24 00:30 08/18/24 00:21 08/18/24 00:15 08/18/24 00:15 08/18/24 00:12 08/18/24 00:09 08/18/24 00:07 40 08/18/24 00:00 08/17/24 23:55 08/17/24 23:52 40 08/17/24 23:50 08/17/24 23:48 08/17/24 23:48 08/17/24 23:45 08/17/24 23:40 08/17/24 23:35 08/17/24 23:26 08/17/24 23:21 08/17/24 23:15 08/17/24 23:10 08/17/24 23:03 08/17/24 23:01 08/17/24 23:00 08/17/24 22:57 08/17/24 22:56 08/17/24 22:45 08/17/24 22:42 08/17/24 22:34 08/17/24 22:31 08/17/24 22:30 08/17/24 22:27 08/17/24 22:11 Laboratory Results Reviewed CBC reviewed chemistry reviewed ABG profound acidemia and shock liver is noted PG Care Time/CCT Total # of Minutes Spent Total Time Spent with Patient: Total time spent is greater than 50% in coordination of care (as documented) at patient's floor/unit and/or counseling patient: Coding Level of Care Code None Diagnoses Sepsis with acute liver failure and septic shock A41.9; R65.21; K72.01 Overdose of fentanyl T40.411A Cardiac arrest I46.9 Cocaine abuse F14.10 Anoxic brain injury G93.1 ARF (acute renal failure) N17.9 Admitted to intensive care unit Z78.9
[2024-08-18 10:43] LABS: Amphetamines+Metham, Urine Neg (Neg); Barbiturates, Urine Neg (Neg); Benzodiazepine, Urine Neg (Neg); Cocaine, Urine Pos (Neg); Fentanyl, Urine Pos (Neg); MDMA (Ecstacy), Urine Neg (Neg); Marijuana, Urine Neg (Neg); Methadone, Urine Neg (Neg); Opiate, Urine Neg (Neg); Phencyclidine, Urine Neg (Neg)
[2024-08-18 11:38] LABS: Hematocrit (blood only) 17.6 % (37.0-47.0); Hemoglobin 4.9 g/dl (12.0-16.0); Mean Corpuscular Hemoglobin 24.3 pg (25.0-34.0); Mean Corpuscular Hgb Conc 27.8 g/dL (32.0-36.0); Mean Corpuscular Volume 87.1 fL (80.0-100.0); Mean Platelet Volume 10.9 fL (9.4-12.4); Nucleated RBC # (auto) 0.28 K/uL (0.00-0.12); Nucleated RBC % (auto) 6.3 %; Platelet Count 60 K/uL (130-400); RDW Coefficient of Variation 19.9 % (11.5-14.5); RDW Standard Deviation 63.3 fL (36.4-46.3); Red Blood Count 2.02 M/uL (4.20-5.40); White Blood Count 4.42 K/ul (4.8-10.8)
[2024-08-18 11:47] LABS: Albumin Level < 1.5 gm/dl (3.4-5.0); Alkaline Phosphatase 111 U/L (34-104); Anion Gap 14 (3-11); BUN Creatinine Ratio 5.9 (10-20); Bilirubin,Total 0.4 mg/dl (0.2-1.0); Blood Urea Nitrogen 21 mg/dl (6-23); Calcium 7.9 mg/dl (8.6-10.3); Carbon Dioxide 44 mmol/L (21-32); Chloride 89 mmol/L (98-107); Creatinine Clr Calc Pharmacy 17.6 ml/min; Glucose 452 mg/dl (70-99(Fasting)); Sodium 147 mmol/L (136-145); Total Protein < 3.0 gm/dl (6.0-8.3)
[2024-08-18 12:17] LABS: Alanine Aminotransferase > 2500 U/L (7-52); Aspartate Aminotransferase 7500 U/L (13-39)
[2024-08-18 12:20] LABS: ALC (manual) 2.92 K/uL (1.2-3.4); ANC (manual) 1.24 K/uL (1.4-6.5); Basophils # (manual) 0.04 K/uL (0-0.2); Basophils % (manual) 1 %; Echinocytes 2+; Eosinophils # (manual) 0.04 K/uL (0-0.50); Eosinophils % (manual) 1 %; Lymphocytes # (manual) 2.92 K/uL (1.2-3.4); Lymphocytes % (manual) 66 %; Metamyelocytes # (manual) 0.18 K/uL (0-0); Metamyelocytes % (manual) 4 %; Neutrophils # (manual) 1.24 K/uL (1.40-6.50); Neutrophils % (manual) 28 %; Polychromasia 1+
--- NOTE | 2024-08-18 14:51 | Discharge Summary ---
Discharge Summary Date of Service pt pronounced 1237 time August 18, 2024 Principal Dx & Hospital Course #1 = Principal Diagnosis (1) Sepsis with acute liver failure and septic shock: (2) Overdose of fentanyl: (3) Cardiac arrest: (4) Cocaine abuse: (5) Anoxic brain injury: (6) ARF (acute renal failure): (7) Admitted to intensive care unit: Plan The patient is a 54-year-old female with unknown past medical history, who presents to the emergency department in an unresponsive state status post intubation in the field.The patient was brought to the emergency department by police officers, after being found unresponsive in the backseat of a vehicle during a routine traffic stop. The bellman driver the vehicle stated that the patient had been asleep since they had left [place] earlier in the day. When police officers were unable to wake the patient up, and they noted she was pulseless, they began CPR, and called EMS. The patient reportedly was a systolic initially, and after IV epinephrine has shockable rhythm and V-fib. Cardiac resuscitation was initiated approximately 45 minutes prior to arrival in the emergency department. She had been receiving push dose epinephrine due to low blood pressure and faint pulses in the interim. When patient arrived to the emergency department, she was intubated, and history was primarily obtained as noted. There were no family or friends available with the patient in the emergency department. At the time of the mind and a hospitalist service assessment, the patient was intubated, and unresponsive. In the emergency department, patient received treatment including the following: Epinephrine infusion, normal saline 3 L boluses, hydrocortisone 100 mg IV, levothyroxine 200 mg IV. Significant abnormal laboratories: AST 2541, ALT greater than 2500, TSH 45.797, magnesium 4.0, potassium 5.5, creatinine 3.13. CT scan of head showed diffuse cerebral edema with sulcal, basal cistern, sylvian fissure, and ventricular narrowing. Diffuse diminution in walters-white matter differentiation. Appearance consistent with global hypoxic-ischemic injury. Patient was referred to [facility] service for admission to the ICU for ongoing care. #Futile care, after examination patient review of her chart and discussion with intensive care physician Dr. Vasquez I am in agreement that we are in a situation of futile care. The patient is having progressive acidemia and multiorgan failure likely result from previous prolonged time without adequate ventilation or perfusion. Imaging the brain is consistent with anoxic brain injury. Decision to change patient's DNR status to DNR and do not advance care at this point in time patient will remain on multiple support mechanisms and will survey for signs of improvement although her outlook is serious and pt at 1237 hours on 08/18/24 #Sepsis/acute liver failure/acute kidney failure/anoxic brain injury/septic shock- Patient admitted to intensive care unit on ventilator, with consult to air carrier inspector team epinephrine drip CT with extensive changes suggestive of significant anoxic brain injury Acute liver failure/DIC/coagulopathy Initial INR 1.3, with follow-up greater than 10.0 pH remained below 7 despite resusitation Lactate greater than 17.0 Acute kidney failure- NSTEMI s/p cardiac arrest- Positive urine drug screen- Cocaine positive with confirmation test pending Fentanyl positive with confirmation test pending Urinary tract infection- Zosyn 4.5 g IV every 8 hours Pulmonary- CT chest with multiple lung opacities-multpfocal pneumonia MRSA swab, coverage of positive Admission HPI Per Admitting Provider The patient is a 54-year-old female with unknown past medical history, who presents to the emergency department in an unresponsive state status post intubation in the field.The patient was brought to the emergency department by police officers, after being found unresponsive in the backseat of a vehicle during a routine traffic stop. The bellman driver the vehicle stated that the patient had been asleep since they had left [place] earlier in the day. When police officers were unable to wake the patient up, and they noted she was pulseless, they began CPR, and called EMS. The patient reportedly was a systolic initially, and after IV epinephrine has shockable rhythm and V-fib. Cardiac resuscitation was initiated approximately 45 minutes prior to arrival in the emergency department. She had been receiving push dose epinephrine due to low blood pressure and faint pulses in the interim. When patient arrived to the emergency department, she was intubated, and history was primarily obtained as noted. There were no family or friends available with the patient in the emergency department. At the time of the mind and a hospitalist service assessment, the patient was intubated, and unresponsive. In the emergency department, patient received treatment including the following: Epinephrine infusion, normal saline 3 L boluses, hydrocortisone 100 mg IV, levothyroxine 200 mg IV. Significant abnormal laboratories: AST 2541, ALT greater than 2500, TSH 45.797, magnesium 4.0, potassium 5.5, creatinine 3.13. CT scan of head showed diffuse cerebral edema with sulcal, basal cistern, sylvian fissure, and ventricular narrowing. Diffuse diminution in walters-white matter differentiation. Appearance consistent with global hypoxic-ischemic injury. Patient was referred to [facility] for admission to the ICU for ongoing care. Discharge Exam Patient is edematous she is got scleral edema pupils are nonreactive developed PEA and eventual was pulseless despite continued resuscitation, Discharge Plan Discharge Items Patient Disposition: Discharge Diagnosis: Multisystem organ failure Likely respiratory depression due to drug overdose Multifocal pneumonia Other Date/Time: 08/18/24 12:37 Hospital Stay Data Consultations 08/17/24 20:37 Consult Director Medical Safety Stat 08/17/24 20:52 ED Decision to Admit Stat 08/17/24 22:52 Consult Director Medical Safety Routine Diagnostic Imagining Performed 08/17/24 19:41 CT head/brain wo con Stat 08/17/24 20:07 CT chest diagnostic w con Stat 08/18/24 04:48 CT head/brain wo con Stat Total Time Total Time Spent Total Time Spent (In Minutes): It required greater than 30 minutes to prepare this patient for discharge. Coding Level of Care Code 15797 INP/OBS DISCH >30 MIN Diagnoses Sepsis with acute liver failure and septic shock A41.9; R65.21; K72.01 Overdose of fentanyl T40.411A Cardiac arrest I46.9 Cocaine abuse F14.10 Anoxic brain injury G93.1 ARF (acute renal failure) N17.9 Admitted to intensive care unit Z78.9
[2024-08-18 15:38] LABS: iSTAT Hemoglobin 13.9 g/dl (12.0-16.0); iSTAT Ionized Calcium 0.88 mmol/l (1.12-1.32); iSTAT Potassium 5.2 mmol/L (3.3-5.0)
[2024-08-18] MEDS ORDERED: CALCIUM CHLORIDE 10% 10 ML SYR IV ONE (15:55)
[2024-08-18] MEDS ORDERED: SODIUM CHLORIDE 0.9% 10ML FLUSH IV ONE (15:55)
[2024-08-18] MEDS ORDERED: DEXTROSE 50% 50 ML SYRINGE IV ONE (15:55)
[2024-08-18] MEDS ORDERED: ATROPINE SULFATE 0.1 MG/ML 10ML SYR IV ONE (15:55)
[2024-08-18] MEDS ORDERED: SODIUM BICARB 8.4% INJ 50 MEQ/50 ML SYR IV ONE (15:55)
[2024-08-18 16:17] LABS: iSTAT Art Bld Gas pCO2 Correct 40 mmHg (35-46); iSTAT Art Bld Gas pH Corrected 6.944 (7.35-7.45); iSTAT Arterial Blood Gas HCO3 10 meg/L (19-24); iSTAT Arterial Blood Gas pCO2 51 mmHg (35-46); iSTAT Arterial Blood Gas pH 6.89 (7.35-7.45); iSTAT Arterial Blood Gas pO2 62 mmHg (80-95); iSTAT Arterial Blood Gas pO2 C 43; iSTAT Carbon Dioxide 11 mmol/L (24-31); iSTAT FiO2 100 %; iSTAT Hematocrit < 15 % (37-47); iSTAT Potassium 4.9 mmol/L (3.3-5.0); iSTAT Sample Type Arterial; iSTAT Site Art Line; iSTAT Sodium 136 mmol/L (135-144); iSTAT SpO2 18
[2024-08-18] MEDS ORDERED: HYDROCORTISONE SOD 100 MG in SYRINGE 0 ML IV SCH (18:00)
[2024-08-18] MEDS ORDERED: FOMEPIZOLE IV SCH (21:00)
[2024-08-18] MEDS ORDERED: DEXTROSE 5% IV SCH (21:00)
[2024-08-20 10:35] LABS: Fibrinogen < 50 mg/dl (184-400)
[2024-08-20 10:37] LABS: Fibrinogen < 50 mg/dl (184-400)
--- NOTE | 2024-08-20 13:34 | Electrocardiogram Report ---
Test Reason : Blood Pressure : */* mmHG Vent. Rate : 39 BPM Atrial Rate : * BPM P-R Int : 240 ms QRS Dur : 118 ms QT Int : 700 ms P-R-T Axes : * 76 -68 degrees QTcB Int : 563 ms Sinus bradycardia with occasional Premature ventricular complexes Suggestive of severe metabolic abnormality Prolonged QT Abnormal ECG No previous ECGs available Confirmed by Heber Ponce ([id number]) on 08/20/2024 1:34:01 PM Referred By: NO PCP Confirmed By: Heber Ponce
--- NOTE | 2024-08-20 13:40 | Electrocardiogram Report ---
Test Reason : Blood Pressure : */* mmHG Vent. Rate : 43 BPM Atrial Rate : 43 BPM P-R Int : 176 ms QRS Dur : 102 ms QT Int : 660 ms P-R-T Axes : 69 74 44 degrees QTcB Int : 557 ms Marked sinus bradycardia Septal infarct (cited on or before 17-Aug-2024) Prolonged QT Consistent with severe metabolic abnormality Abnormal ECG When compared with ECG of 17-Aug-2024 19:56, (unconfirmed) Premature ventricular complexes are no longer Present Minor overall improvement is noted Confirmed by Heber Ponce ([id number]) on 08/20/2024 1:40:15 PM Referred By: NO PCP Confirmed By: Heber Ponce
[2024-08-21 07:16] LABS: Cocaine, Urine >20000 ng/mL (<100); Fentanyl, Urine 51.7 ng/mL (<0.5); Norfentanyl, Urine >250.0 ng/mL (<0.5); medMATCH Fentanyl, Urine DNR; medMATCH Norfentanyl, Urine DNR
[2024-08-21 07:16] LABS: Cocaine, Urine >20000 ng/mL (<100); Fentanyl, Urine 27.8 ng/mL (<0.5); Norfentanyl, Urine >250.0 ng/mL (<0.5); medMATCH Fentanyl, Urine DNR; medMATCH Norfentanyl, Urine DNR
== END 2024-08-18 15:56 | disposition expired | DRG 871 ==
LOC: ED 19:09 → 1E 21:26 → SUATTDRO 21:26 → 1E 22:11